=== PATIENT | female | born 1930 | race Caucasian/White ===

== ENCOUNTER 2017-11-24 13:20 | Day surgery (SDC) | payer OTHER ==
--- NOTE | 2017-11-20 09:33 | EKG ---
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
[2017-11-24 13:45] VITALS: O2SAT 99
[2017-11-24] MEDS ORDERED: NS 0.9% VIAL 10 ML ONE (13:48)
[2017-11-24] MEDS ORDERED: LIDOCAINE 2% INJ, MPF 2 ML 0 ML ONE (13:54)
[2017-11-24] MEDS ORDERED: NA CHLORIDE 0.9% 500 ML ONE (13:54)
[2017-11-24] MEDS ORDERED: PHENYLEPHRINE 10% OPTH 5ML ONE (13:54)
[2017-11-24] MEDS ORDERED: TETRACAINE HCL 0.5% 2ML OPTH ONE (13:55)
[2017-11-24] MEDS ORDERED: BUPIVACAINE 0.25% PF 10 ML VIAL ONE (13:55)
[2017-11-24] MEDS ORDERED: CYCLOPENTOLATE 1% OPTH 2 ML ONE (13:55)
[2017-11-24] MEDS ORDERED: PHENYLEPHRINE 10% OPTH 5ML OPTH ONE ×2 (14:23→14:28)
[2017-11-24] MEDS ORDERED: CYCLOPENTOLATE 1% OPTH 2 ML OPTH ONE ×2 (14:23→14:28)
[2017-11-24] MEDS: EPINEPHRINE/PF 1 MG/ML AMP ONE ×2 (14:58→15:25)
[2017-11-24] MEDS: BALANCED SALT IRRIG PLAIN 500 ML BTL IRR ONE ×2 (14:58→15:25)
[2017-11-24] MEDS: MOXIFLOXACIN HCL 10 DROPS/ML **OR USE OPTH ONE ×2 (14:59→15:25)
[2017-11-24] MEDS: DUOVISC 1 KIT OPTH ONE ×2 (14:59→15:25)
[2017-11-24] MEDS ORDERED: FENTANYL CITR 100 MCG/2 ML ONE (15:05)
[2017-11-24] MEDS ORDERED: PROPOFOL 200 MG/20 ML VIAL IV ONE (15:05)
[2017-11-24] MEDS ORDERED: LIDOCAINE 1% MPF 5 ML VIAL ONE (15:06)
[2017-11-24] MEDS ORDERED: BSS OPTHALMIC SOL 15 ML BOT OPTH ONE (15:22)
[2017-11-24] MEDS ORDERED: ONDANSETRON HCL 40 MG/20 ML VIAL ONE (15:44)
[2017-11-24] MEDS ORDERED: EPHEDRINE SULF 50 MG/10 ML SYR ONE (15:44)
--- NOTE | 2017-11-24 16:15 | P.BOP ---
Preoperative diagnosis: Nuclear sclerotic cataract and regular astigmatism OS Postoperative diagnosis: Same Primary procedure: Phacoemulsification with IOL OS Estimated blood loss: None Anesthesia: General Complications: None Implants: [id number] +25.0 @ 167 Transferred to: Other (Day surgery) Condition: Good
[2017-11-24 17:04] VITALS: BP 158/51; TEMP 96.8
--- NOTE | 2017-11-25 03:21 | OP ---
Date of Procedure: 11/24/2017 Surgeon: Adwoa Clark MD Anesthesiologist: Víctor Marie CRNA and Josias Garcia M.D. Preoperative Diagnoses: Nuclear sclerotic cataract, left eye; and regular astigmatism, left eye. Operation Performed: Phacoemulsification with Toric intraocular lens implant, left eye. Anesthesia: General anesthesia. Complications: None. Description Of Procedure: In the operating room the patient was prepped and draped in the usual ster ile fashion for ophthalmic surgery. A lid speculum was placed in the left eye. Two paracentesis sit es were made superiorly and inferiorly in the limbal cornea. Viscoat was placed in the anterior mily hanh and a crescent blade was used to make a corneal groove and tunnel, and a keratome was used to ent er the anterior chamber. Provisc was placed in the anterior chamber and a 360 degree capsulotomy was performed with a cystitome. The lens was hydrodissected with BSS and rotated freely. The lens was removed with a stop and chop technique. A 25.96 phaco CDE was used to remove the lens. Residual cor jimbo was removed with the irrigation and aspiration. Provisc was placed in the capsular bag. A [id number] 5 +25.0 at 167 lens was placed in the capsular bag without complications. Irrigation and aspiration was used to remove residual viscoelastic. The paracentesis sites were hydrated with BSS. The wound and paracentesis sites were inspected and found to be watertight. Vigamox 0.07 cc was placed intraca merally at the end of the procedure. The eye was irrigated with balanced salt solution. The eye was patched with a soft cotton patch and Brody metal shield. The patient was returned to day surgery in good condition. Comments: The patient was performed under general anesthesia because of a tremor. Discharge Instructions: Ms. Espinosa is discharged to home in good condition and is to follow up byron Clark in the morning. ARTUR/CORTES Voice ID: [id number] Report ID: [id number]
== END 2017-11-24 17:30 | disposition home or self-care (01) ==
LOC: OR 13:20
PROVIDERS: ATTEND Ophthalmology Retina Specialist
PROC: 08RK3JZ Replacement of Left Lens with Synthetic Substitute, Percutaneous Approach (ICD-10-PCS; principal; 2017-11-24 13:00)
DX: H25.12 Age-related nuclear cataract, left eye (principal); H52.222 Regular astigmatism, left eye; I10 Essential (primary) hypertension; Z88.0 Allergy status to penicillin; Z83.511 Family history of glaucoma; Z82.49 Family history of ischemic heart disease and other diseases of the circulatory system; Z80.9 Family history of malignant neoplasm, unspecified
CPT/HCPCS: 66984; 93005; J0171; J2405; J3010; J3490; V2787

== ENCOUNTER 2018-01-05 06:51 | Day surgery (SDC) | payer OTHER ==
[2018-01-05] MEDS ORDERED: PHENYLEPHRINE 10% OPTH 5ML ONE (07:17)
[2018-01-05] MEDS ORDERED: NA CHLORIDE 0.9% 500 ML ONE (07:17)
[2018-01-05] MEDS ORDERED: CYCLOPENTOLATE 1% OPTH 2 ML ONE (07:17)
[2018-01-05] MEDS ORDERED: PHENYLEPHRINE 10% OPTH 5ML OPTH ONE ×2 (07:30→07:35)
[2018-01-05] MEDS ORDERED: CYCLOPENTOLATE 1% OPTH 2 ML OPTH ONE ×2 (07:30→07:35)
[2018-01-05] MEDS ORDERED: NS 0.9% VIAL 10 ML ONE (08:11)
[2018-01-05] MEDS ORDERED: DUOVISC 1 KIT OPTH ONE (08:12)
[2018-01-05] MEDS ORDERED: BALANCED SALT IRRIG PLAIN 500 ML BTL IRR ONE (08:12)
[2018-01-05] MEDS ORDERED: EPINEPHRINE/PF 1 MG/ML AMP ONE (08:12)
[2018-01-05] MEDS ORDERED: MOXIFLOXACIN HCL 10 DROPS/ML **OR USE OPTH ONE (08:12)
[2018-01-05] MEDS ORDERED: FENTANYL CITR 100 MCG/2 ML ONE (08:35)
[2018-01-05] MEDS ORDERED: PROPOFOL 200 MG/20 ML VIAL IV ONE (08:35)
[2018-01-05] MEDS ORDERED: LIDOCAINE 2% MPF 5 ML VIAL ONE (08:35)
[2018-01-05] MEDS ORDERED: EPHEDRINE SULF 50 MG/10 ML SYR ONE (08:36)
[2018-01-05] MEDS ORDERED: GLYCOPYRROLATE 0.2 MG/ML SYR ONE (08:36)
[2018-01-05] MEDS ORDERED: TETRACAINE HCL 0.5% 2ML OPTH ONE (09:05)
--- NOTE | 2018-01-05 09:56 | P.BOP ---
Preoperative diagnosis: Nuclear sclerotic cataract and regular astigmatism OD Postoperative diagnosis: Same Primary procedure: Phacoemulsification with Toric IOL OD Estimated blood loss: None Anesthesia: General Complications: None Implants: [id number] +24.5 @ 170 Transferred to: Recovery Room Condition: Good
[2018-01-05 10:49] VITALS: BP 164/62; TEMP 97.8; O2SAT 95
--- NOTE | 2018-01-05 21:17 | OP ---
Date of Procedure: 01/05/2018 Surgeon: Adwoa Clark MD Anesthesiologist: 1. Linda Ocasio CRNA. 2. Francis Escobar M.D. Preoperative Diagnosis: Nuclear sclerotic cataract, right eye. Operation Performed: Phacoemulsification with intraocular lens implant, right eye. Anesthesia: General. Complications: None. Description Of Procedure: In the operating room, the patient was prepped and draped in the usual julio c rile fashion for ophthalmic surgery. A lid speculum was placed in the right eye. Paracentesis sites were made superiorly and inferiorly in the limbal cornea. Viscoat was placed in the anterior chambe r and a crescent blade was used to make a corneal groove and tunnel, and a keratome was used to enter the anterior chamber. Provisc was placed in the anterior chamber and a 360 degree capsulotomy was p erformed with a cystitome. The lens was hydrodissected with BSS and rotated freely. The lens was re moved with a stop and chop technique. 19.07 phaco CDE was used to remove the lens. Residual cortex was removed with the irrigation and aspiration. Provisc was placed in the capsular bag. A [id number] + 24.5 at 170 degrees lens was placed in the capsular bag without complications. Irrigation and aspira tion were used to remove residual viscoelastic. The paracentesis sites were hydrated with BSS. The wound and paracentesis sites were inspected and found to be watertight. Vigamox 0.07 cc was placed i ntracamerally at the end of the procedure. The eye was irrigated with balanced salt solution. The e ye was patched with a soft cotton patch and Brody metal shield. The patient was returned to day surgery in good condition. Comments: Extra Viscoat was used. Discharge Instructions: Ms. Espinosa is discharged to home in good condition and is to follow up byron Clark in the morning. ARTUR/CORTES Voice ID: [id number] Report ID: [id number]
== END 2018-01-05 11:07 | disposition home or self-care (01) ==
LOC: OR 06:51
PROVIDERS: ATTEND Ophthalmology Retina Specialist
PROC: 08RJ3JZ Replacement of Right Lens with Synthetic Substitute, Percutaneous Approach (ICD-10-PCS; principal; 2018-01-05 09:10)
DX: H25.11 Age-related nuclear cataract, right eye (principal); H52.221 Regular astigmatism, right eye; E11.9 Type 2 diabetes mellitus without complications; I10 Essential (primary) hypertension; Z88.0 Allergy status to penicillin; Z88.8 Allergy status to other drugs, medicaments and biological substances; Z79.82 Long term (current) use of aspirin; Z83.511 Family history of glaucoma; Z80.9 Family history of malignant neoplasm, unspecified; Z82.49 Family history of ischemic heart disease and other diseases of the circulatory system
CPT/HCPCS: 36415; 66984; 82962; 84132; J0171; J3010; V2787

== ENCOUNTER 2018-02-20 18:08 | Observation (INO) | payer OTHER ==
--- NOTE | 2018-02-20 18:29 | EDPHYS ---
Physician Documentation [facility] Unit Name: Adwoa Espinosa Age: 87 yrs Sex: Female : 1930 Arrival Date: 02/20/2018 Time: 18:09 Bed 7 Private MD: Leslie Noonan C ED Physician Victoriano Flores HPI: 02/20 18:19 This 87 yrs old Female presents to ER via EMS with complaints of Weakness. bernabe 18:19 The patient presents to the emergency department with weakness of the a speech or bernabe higher order brain function problem, difficulty standing, difficult walking. Onset: The symptoms/episode began/occurred today. Context: occurred at home. Associated signs and symptoms: Pertinent positives: altered mental status, weakness. Severity of symptoms: At their worst the symptoms were mild in the emergency department the symptoms are unchanged. Patient's baseline: Neuro: alert and fully oriented, Motor: no deficits, Ambulation: walks with assist only, Speech: normal. The patient has experienced similar episodes in the past, a few times. Historical: - Allergies: 18:13 ACETAMINOPHEN; bp 18:13 Codeine; bp 18:13 Opioids-Meperidine Related; bp 18:13 PENICILLINS; bp - Home Meds: 18:23 spironolactone 25 mg Oral tab 1 tab once daily [Active]; furosemide 40 mg Oral tab 1 bp tab 2 times per day [Active]; hydralazine 10 mg Oral tab 1 tab 2 times per day [Active]; propranolol 20 mg Oral tab 2 times per day [Active]; ursodiol 500 mg Oral tab daily [Active]; omeprazole 40 mg Oral cpDR 1 cap once daily [Active]; - PMHx: 18:13 Arthritis; Atrial Fib; Cirrhosis; Hypertension; bp - Immunization history:: Adult Immunizations up to date. - Social history:: Smoking status: Patient/guardian denies using tobacco. - Ebola Screening: : Patient negative for fever greater than or equal to 101.5 degrees Fahrenheit, and additional compatible Ebola Virus Disease symptoms Patient denies exposure to infectious person Patient denies travel to an Ebola-affected area in the 21 days before illness onset No symptoms or risks identified at this time. - Family history:: not pertinent. ROS: 18:19 Constitutional: Negative for fever, chills, and weight loss, Eyes: Negative for injury, bernabe pain, redness, and discharge, ENT: Negative for injury, pain, and discharge, Neck: Negative for injury, pain, and swelling, Cardiovascular: Negative for chest pain, palpitations, and edema, Respiratory: Negative for shortness of breath, cough, wheezing, and pleuritic chest pain, Abdomen/GI: Negative for abdominal pain, nausea, vomiting, diarrhea, and constipation, Back: Negative for injury and pain, : Negative for injury, bleeding, discharge, and swelling, MS/Extremity: Negative for injury and deformity, Skin: Negative for injury, rash, and discoloration, Psych: Negative for depression, anxiety, suicide ideation, homicidal ideation, and hallucinations, Allergy/Immunology: Negative for hives, rash, and allergies, Endocrine: Negative for neck swelling, polydipsia, polyuria, polyphagia, and marked weight changes, Hematologic/Lymphatic: Negative for swollen nodes, abnormal bleeding, and unusual bruising. 18:19 Neuro: Positive for altered mental status, weakness. Exam: 18:19 Constitutional: This is a well developed, well nourished patient who is awake, alert, bernabe and in no acute distress. Head/Face: Normocephalic, atraumatic. Eyes: Pupils equal round and reactive to light, extra-ocular motions intact. Lids and lashes normal. Conjunctiva and sclera are non-icteric and not injected. Cornea within normal limits. Periorbital areas with no swelling, redness, or edema. ENT: Nares patent. No nasal discharge, no septal abnormalities noted. Tympanic membranes are normal and external auditory canals are clear. Oropharynx with no redness, swelling, or masses, exudates, or evidence of obstruction, uvula midline. Mucous membranes moist. Neck: Trachea midline, no thyromegaly or masses palpated, and no cervical lymphadenopathy. Supple, full range of motion without nuchal rigidity, or vertebral point tenderness. No Meningismus. Chest/axilla: Normal chest wall appearance and motion. Nontender with no deformity. No lesions are appreciated. Cardiovascular: Regular rate and rhythm with a normal S1 and S2. No gallops, murmurs, or rubs. Normal PMI, no JVD. No pulse deficits. Respiratory: Lungs have equal breath sounds bilaterally, clear to auscultation and percussion. No rales, rhonchi or wheezes noted. No increased work of breathing, no retractions or nasal flaring. Abdomen/GI: Soft, non-tender, with normal bowel sounds. No distension or tympany. No guarding or rebound. No evidence of tenderness throughout. Back: No spinal tenderness. No costovertebral tenderness. Full range of motion. Skin: Warm, dry with normal turgor. Normal color with no rashes, no lesions, and no evidence of cellulitis. MS/ Extremity: Pulses equal, no cyanosis. Neurovascular intact. Full, normal range of motion. Neuro: Awake and alert, GCS 15, oriented to person, place, time, and situation. Cranial nerves II-XII grossly intact. Motor strength 5/5 in all extremities. Sensory grossly intact. Cerebellar exam normal. Normal gait. Psych: Awake, alert, with orientation to person, place and time. Behavior, mood, and affect are within normal limits. 18:19 Neuro: Orientation: is normal, appropriate for stated age, no acute changes, Mentation: appropriate for stated age, no acute changes, Cerebellar function: unable to test, Motor: moves all fours, Gait: not tested. seizure activity, is not displayed by the patient. Vital Signs: 18:13 BP 156 / 72; Pulse 68; Resp 19; Temp 96.9; Pulse Ox 97% ; Weight 58.97 kg; bp 19:15 BP 148 / 55; Pulse 98; Resp 18; Temp 98(O); Pulse Ox 96% on 2 lpm NC; rr5 20:30 BP 134 / 53; Pulse 68; Resp 18; Temp 98.1; Pulse Ox 96% on 2 lpm NC; rr5 20:50 BP 141 / 70; Pulse 65; Resp 18; Pulse Ox 97% on 2 lpm NC; rr5 Vlad Coma Score: 19:15 Eye Response: spontaneous(4). Verbal Response: oriented(5). Motor Response: obeys rr5 commands(6). Total: 15. MDM: 18:12 Patient medically screened. [facility] 18:23 Data reviewed: vital signs, nurses notes, lab test result(s), EKG, radiologic studies, [facility] CT scan, plain films. 02/20 18:19 Order name: Basic Metabolic Panel; Complete Time: 19:49 [facility] 02/20 19:49 Interpretation: Normal except: GLUC 148; BUN 21; GFR 39. cp 02/20 18:19 Order name: CBC with Diff; Complete Time: 19:07 [facility] 02/20 18:19 Order name: LFT's; Complete Time: 19:49 [facility] 02/20 19:50 Interpretation: Normal except: BILIT 2.1; BILID 0.8; GLOB 3.6; A/G 0.9. 02/20 18:19 Order name: Magnesium; Complete Time: 19:49 [facility] 02/20 18:19 Order name: NT PRO-BNP; Complete Time: 19:49 [facility] 02/20 19:54 Interpretation: Abnormal: NT PRO-BNP 856. 02/20 18:19 Order name: PT-INR; Complete Time: 19:16 [facility] 02/20 18:19 Order name: Troponin (emerg Dept Use Only); Complete Time: 19:49 [facility] 02/20 19:49 Interpretation: Abnormal: TROPED 0.13. 02/20 18:19 Order name: Urine Culture [facility] 02/20 18:19 Order name: Lipase; Complete Time: 19:49 [facility] 02/20 18:19 Order name: Blood Culture Adult (2) [facility] 02/20 18:23 Order name: AMMONIA; Complete Time: 19:16 [facility] 02/20 19:55 Interpretation: Abnormal: YUNIER 94. cp 02/20 18:29 Order name: Lactate; Complete Time: 19:20 bp 02/20 19:50 Interpretation: Abnormal: LAC 2.3. 02/20 18:41 Order name: Basic Metabolic Panel EDMS 02/20 18:41 Order name: Basic Metabolic Panel EDMS 02/20 18:19 Order name: XRAY Chest (1 view) [facility] 02/20 18:19 Order name: CT Head Brain wo Cont [facility] 02/20 18:41 Order name: CBC with Automated Diff EDMS 02/20 18:41 Order name: CBC with Automated Diff EDMS 02/20 18:41 Order name: Troponin I EDMS 02/20 18:41 Order name: Troponin I EDMS 02/20 18:41 Order name: Troponin I EDMS 02/20 19:25 Order name: CT; Complete Time: 19:49 EDMS 02/20 19:27 Order name: RAD; Complete Time: 19:49 EDMS 02/20 20:37 Order name: Urine Dipstick--Ancillary (enter results) ms 02/20 20:42 Order name: Urine Dipstick-Ancillary EDMS 02/20 18:19 Order name: EKG; Complete Time: 18:20 [facility] 02/20 18:19 Order name: Cardiac monitoring; Complete Time: 18:24 [facility] 02/20 18:19 Order name: EKG - Nurse/Tech; Complete Time: 18:24 [facility] 02/20 18:19 Order name: IV Saline Lock; Complete Time: 18:24 [facility] 02/20 18:19 Order name: Labs collected and sent; Complete Time: 19:04 [facility] 02/20 18:19 Order name: O2 Per Protocol; Complete Time: 18:24 [facility] 02/20 18:19 Order name: O2 Sat Monitoring; Complete Time: 18:24 [facility] 02/20 18:19 Order name: Urine Dipstick-Ancillary (obtain specimen); Complete Time: 20:42 [facility] 02/20 18:40 Order name: Consistent Carb (ADA) [address] EDMS 02/20 18:40 Order name: EKG Electrocardiogram EDMS 02/20 18:40 Order name: EKG Electrocardiogram EDMS 02/20 18:40 Order name: EKG Electrocardiogram EDMS 02/20 18:40 Order name: EKG Electrocardiogram EDMS Administered Medications: 19:40 Drug: Rocephin - (cefTRIAXone) 1 grams Route: IVPB; Infused Over: 30 mins; Site: left lp1 antecubital; 20:55 Follow up: Response: No adverse reaction; IV Status: Completed infusion rr5 19:50 Drug: Lactulose 30 grams Volume: 45 ml; Route: PO; lp1 20:55 Follow up: Response: No adverse reaction rr5 19:55 Drug: foLIC Acid 1 mg Route: IVPB; Site: left antecubital; lp1 21:13 Follow up: Response: No adverse reaction; IV Status: Infusion continued upon admission rr5 19:55 Drug: NS 0.9% 500 ml Route: IV; Rate: bolus; Site: left antecubital; lp1 20:55 Follow up: Response: No adverse reaction; IV Status: Infusion continued upon admission; rr5 IV Intake: 450ml 20:55 Drug: Aspirin Chewable Tablet 324 mg Route: PO; rr5 20:55 Follow up: Response: Other; upon transfer medicatio given rr5 Disposition: 02/20/18 18:26 Hospitalization ordered by Leslie Noonan for Observation. Preliminary diagnosis are Weakness, Altered mental status, unspecified, Encephalopathy, unspecified - hepatic. - Bed requested for Telemetry/MedSurg (observation). - Status is Observation. rr5 - Condition is Fair. - Problem is new. - Symptoms have improved. UTI on Admission? No Signatures: Dispatcher [employer] EDMS Ruth Anglin RN RN Victoriano Sanchez MD MD cha Pena, Laura, RN RN lp1 Victoriano Mondragon PA PA cp Peltier, Brian, RN RN bp Erick Monsivais, RN RN rr5 Corrections: (The following items were deleted from the chart) 19:17 18:26 Hospitalization Ordered by A Saran CORONADO for Observation. Preliminary diagnosis is bernabe Weakness; Altered mental status, unspecified. Bed requested for Telemetry/MedSurg (observation). Status is Observation. Condition is Fair. Problem is new. Symptoms have improved. UTI on Admission? No. bernabe 19:39 19:17 02/20/2018 18:26 Hospitalization Ordered by A Saran CORONADO for Observation. dw Preliminary diagnosis is Weakness; Altered mental status, unspecified; Encephalopathy, unspecified - hepatic. Bed requested for Telemetry/MedSurg (observation). Status is Observation. Condition is Fair. Problem is new. Symptoms have improved. UTI on Admission? No. bernabe 21:15 19:39 02/20/2018 18:26 Hospitalization Ordered by A Saran CORONADO for Observation. rr5 Preliminary diagnosis is Weakness; Altered mental status, unspecified; Encephalopathy, unspecified - hepatic. Bed requested for Telemetry/MedSurg (observation). Status is Observation. Condition is Fair. Problem is new. Symptoms have improved. UTI on Admission? No. dw
--- NOTE | 2018-02-20 18:29 | ER ---
Nurse's Notes [facility] Name: Adwoa Espinosa Age: 87 yrs Sex: Female : 1930 Arrival Date: 02/20/2018 Time: 18:09 Bed 7 Private MD: Leslie Noonan C Diagnosis: Weakness;Altered mental status, unspecified;Encephalopathy, unspecified-hepatic Presentation: 02/20 18:10 Presenting complaint: EMS states: GENERALIZED WEAKNESS SINCE THIS MORNING. Transition bp of care: patient was not received from another setting of care. Onset of symptoms is unknown. Risk Assessment: Do you want to hurt yourself or someone else? Patient reports no desire to harm self or others. Initial Sepsis Screen: Does the patient meet any 2 criteria? No. Patient's initial sepsis screen is negative. Does the patient have a suspected source of infection? No. Patient's initial sepsis screen is negative. Care prior to arrival: IV initiated. 20 GA, in the left antecubital area, Glucose check: 156. 18:10 Method Of Arrival: EMS: [facility] bp 18:10 Acuity: XAVIER 2 bp Triage Assessment: 18:13 General: Appears in no apparent distress. comfortable, Behavior is calm, cooperative, bp appropriate for age. Pain: Denies pain. EENT: No deficits noted. Neuro: Level of Consciousness is awake, alert, obeys commands, Oriented to person, place, time, situation, Appropriate for age Gait is unsteady. Cardiovascular: Rhythm is sinus rhythm. Respiratory: Airway is patent Respiratory effort is even, unlabored, Respiratory pattern is regular, symmetrical. GI: No signs and/or symptoms were reported involving the gastrointestinal system. : No signs and/or symptoms were reported regarding the genitourinary system. Derm: No deficits noted. Musculoskeletal: Circulation, motion, and sensation intact. Range of motion: intact in all extremities. Historical: - Allergies: 18:13 ACETAMINOPHEN; bp 18:13 Codeine; bp 18:13 Opioids-Meperidine Related; bp 18:13 PENICILLINS; bp - Home Meds: 18:23 spironolactone 25 mg Oral tab 1 tab once daily [Active]; furosemide 40 mg Oral tab 1 bp tab 2 times per day [Active]; hydralazine 10 mg Oral tab 1 tab 2 times per day [Active]; propranolol 20 mg Oral tab 2 times per day [Active]; ursodiol 500 mg Oral tab daily [Active]; omeprazole 40 mg Oral cpDR 1 cap once daily [Active]; - PMHx: 18:13 Arthritis; Atrial Fib; Cirrhosis; Hypertension; bp - Immunization history:: Adult Immunizations up to date. - Social history:: Smoking status: Patient/guardian denies using tobacco. - Ebola Screening: : Patient negative for fever greater than or equal to 101.5 degrees Fahrenheit, and additional compatible Ebola Virus Disease symptoms Patient denies exposure to infectious person Patient denies travel to an Ebola-affected area in the 21 days before illness onset No symptoms or risks identified at this time. - Family history:: not pertinent. Screenin:17 Abuse screen: Denies threats or abuse. Denies injuries from another. Nutritional bp screening: No deficits noted. Tuberculosis screening: No symptoms or risk factors identified. Fall Risk No fall in past 12 months (0 pts). Secondary diagnosis (15 points) impaired mobility, IV access (20 points). Ambulatory Aid- Crutches/Cane/Walker (15 pts). Gait- Weak (10 pts.). Mental Status- Oriented to own ability (0 pts). Total Friedman Fall Scale indicates High Risk Score (45 or more points). Fall prevention measures have been instituted. Side Rails Up X 2 Placed Close to Nursing Station Frequent Obs/Assessments Occuring Family Present and informed to notify staff if the need to leave the bedside As available patient and family educated on Fall Prevention Program and Strategies. 19:50 The patient is alert, able to follow commands. slow to speak The patient is not rr5 exhibiting difficulty speaking. slow to speak The patient does not exhibit difficulty understanding words. The patient is able to swallow own secretions with no drooling or need for suction. Patient tolerated one teaspoon of water. No drooling, immediate coughing, gurgling, or clearing of the throat was noted. The patient tolerated 90mL of water. No drooling, immediate coughing, gurgling, or clearing of the throat was noted. The patient passed the bedside swallow screening. Oral medications may be given as ordered. Contact Physician for further diet orders. Assessment: 18:18 General: SEE TRIAGE NOTE. bp 19:15 General: Appears in no apparent distress. comfortable, Behavior is calm, cooperative, lp1 appropriate for age, slow to speak. 19:15 Pain: Denies pain. Neuro: Level of Consciousness is awake, alert, obeys commands, lp1 Oriented to person, place, time, Social Human Services Assistants are weak bilaterally Weakness Speech slow to speak. Reports weakness. Cardiovascular: Capillary refill < 3 seconds Patient's skin is warm and dry. Respiratory: Airway is patent Respiratory effort is even, unlabored, Respiratory pattern is regular, symmetrical. GI: No signs and/or symptoms were reported involving the gastrointestinal system. : EENT: No signs and/or symptoms were reported regarding the EENT system. Derm: edema at left lower leg. Musculoskeletal: No signs and/or symptoms reported regarding the musculoskeletal system. 19:15 Reassessment: 191 General assessment done by erick DEAN. rr5 19:40 Reassessment: medication given on upright position, tolerated. swallow test done. lp1 20:55 Reassessment: Patient appears in no apparent distress at this time. no complaints made. rr5 vitally stable transferred to telemetry Patient states feeling better. Vital Signs: 18:13 BP 156 / 72; Pulse 68; Resp 19; Temp 96.9; Pulse Ox 97% ; Weight 58.97 kg; bp 19:15 BP 148 / 55; Pulse 98; Resp 18; Temp 98(O); Pulse Ox 96% on 2 lpm NC; rr5 20:30 BP 134 / 53; Pulse 68; Resp 18; Temp 98.1; Pulse Ox 96% on 2 lpm NC; rr5 20:50 BP 141 / 70; Pulse 65; Resp 18; Pulse Ox 97% on 2 lpm NC; rr5 Snowflake Coma Score: 19:15 Eye Response: spontaneous(4). Verbal Response: oriented(5). Motor Response: obeys rr5 commands(6). Total: 15. ED Course: 18:09 Patient arrived in ED. rg4 18:09 Leslie Noonan MD is Private Physician. rg4 18:10 Reese Tejeda, JERMAINE is Primary Nurse. bp 18:12 Victoriano Flores MD is Attending Physician. bernabe 18:12 Triage completed. bp 18:13 Arm band placed on right wrist. bp 18:17 Patient has correct armband on for positive identification. Bed in low position. Call bp light in reach. Side rails up X2. Adult w/ patient. 18:24 Maintain EMS IV. Dressing intact. Good blood return noted. Site clean \T\ dry. Gauge \T\ bp site: 20 GAUGE LEFT AC. 18:25 Patient moved to [place] 18:26 Leslie Noonan MD is Hospitalizing Provider. [facility] 18:35 Radiology exam delayed due to IV insertion attempt and/or patient not having ls3 appropriate IV at this time. 19:15 youth nutritional monitor on. Pulse ox on. NIBP on. rr5 20:30 Straight cath inserted, using sterile technique, 16 Fr. Specimen obtained. Returned rr5 bo urine. Patient tolerated well. 20:33 No provider procedures requiring assistance completed. Patient admitted, IV remains in lp1 place. Administered Medications: 19:40 Drug: Rocephin - (cefTRIAXone) 1 grams Route: IVPB; Infused Over: 30 mins; Site: left lp1 antecubital; 20:55 Follow up: Response: No adverse reaction; IV Status: Completed infusion rr5 19:50 Drug: Lactulose 30 grams Volume: 45 ml; Route: PO; lp1 20:55 Follow up: Response: No adverse reaction rr5 19:55 Drug: foLIC Acid 1 mg Route: IVPB; Site: left antecubital; lp1 21:13 Follow up: Response: No adverse reaction; IV Status: Infusion continued upon admission rr5 19:55 Drug: NS 0.9% 500 ml Route: IV; Rate: bolus; Site: left antecubital; lp1 20:55 Follow up: Response: No adverse reaction; IV Status: Infusion continued upon admission; rr5 IV Intake: 450ml 20:55 Drug: Aspirin Chewable Tablet 324 mg Route: PO; rr5 20:55 Follow up: Response: Other; upon transfer medicatio given rr5 Intake: 20:55 IV: 450ml; Total: 450ml. rr5 20:30 yellowish rr5 Output: 20:30 Urine: 250ml (Straight Cath); Total: 250ml. rr5 20:30 yellowish rr5 Outcome: 18:26 Decision to Hospitalize by Provider. bernabe 20:32 Admitted to Tele room 407, with chart, Report called to JERMAINE Sharpe lp1 20:32 Condition: stable 20:32 Instructed on the need for admit. 21:15 Patient left the ED. rr5 Signatures: Victoriano Flores MD MD cha Pena, Laura, RN RN lp1 Natalia Jolly rg4 Kellen Valdivia 2 Reese Tejeda RN RN bp Ana Singh ls3 Erick Monsivais RN RN rr5 Corrections: (The following items were deleted from the chart) 20:13 19:15 GI: No signs and/or symptoms were reported involving the gastrointestinal system. rr5 lp1 20:33 20:32 Admitted to Tele with chart, Report called to JERMAINE Sharpe lp1 lp1
[2018-02-20] MEDS ORDERED: ACETAMINOPHEN 500 MG TAB PO PRN (18:34)
[2018-02-20] MEDS ORDERED: ONDANSETRON 4 MG/2 ML VIAL IV PRN (18:34)
[2018-02-20 19:03] LABS: Absolute Lymphocytes (CBC) 1.5 K/uL (0.7-4.9); Absolute Monocytes 0.8 K/uL (0.1-1.3); Absolute Neutrophil 4.9 K/uL (1.8-8.0); Basophils % 0.4 % (0-1.3); Eosinophils % 3.1 % (0-4.4); Hematocrit 41.5 % (36.0-45.0); MCH 32.6 pg (27.0-35.0); MCV 93.3 fL (80-100); Monocytes % 10.2 % (3.3-12.3); RBC Red Blood Cell Count 4.45 M/uL (3.86-4.86)
[2018-02-20 19:06] LABS: Protime INR 1.35
[2018-02-20 19:22] LABS: Albumin 3.4 g/dL (3.4-5.0); Bilirubin Direct 0.8 mg/dL (0-0.2); Bilirubin Total 2.1 mg/dL (0.2-1.0); Magnesium 2.3 mg/dL (1.8-2.4); Troponin (Emerg Dept Use Only) 0.13 ng/mL (0.0-0.045)
--- NOTE | 2018-02-20 19:24 | RAD REPORT ---
EXAM DESCRIPTION: CT - Head Brain Wo Cont - 02/20/2018 7:04 pm CLINICAL HISTORY: Transient alteration of awareness COMPARISON: None. TECHNIQUE: Axial 5 mm thick images of the head were obtained without IV contrast. All CT scans are performed using dose optimization technique as appropriate and may include automated exposure control or mA/KV adjustment according to patient size. FINDINGS: No intracranial hemorrhage, mass, edema or shift of mid-line structures. No acute infarcti on changes seen. Moderate severity atrophy and chronic ischemic changes are present. Ventricles are i n proportion to volume loss. Arterial and physiologic calcifications are present. Ventricles are norm al. Mastoid air cells are clear. Chronic sphenoid sinusitis is present. No acute bony findings. IMPRESSION: Moderate atrophy and chronic ischemic change with no acute intracranial finding. Chronic sphenoid sinusitis.
--- NOTE | 2018-02-20 19:26 | RAD REPORT ---
EXAM DESCRIPTION: RAD - Chest Single View - 02/20/2018 7:00 pm CLINICAL HISTORY: Weakness, shortness of breath COMPARISON: July 2015 TECHNIQUE: AP portable chest image was obtained 1843 hours . FINDINGS: Chronic interstitial lung disease is evident. Interstitial pattern is similar to compariso n. Heart and vasculature are normal. No measurable pleural effusion and no pneumothorax. No acute bon y abnormality seen. No acute aortic findings suspected. IMPRESSION: Chronic interstitial lung disease similar to comparison. No acute finding identifiable.
[2018-02-20] MEDS ORDERED: NA CHLORIDE 0.9% 500 ML ONE (19:42)
[2018-02-20] MEDS ORDERED: CEFTRIAXONE/SWI 1gm 1 GM/10 ML SYR ONE (19:43)
[2018-02-20] MEDS ORDERED: FOLIC ACID 5 MG/ML VIAL ONE (19:43)
[2018-02-20] MEDS ORDERED: LACTULOSE 20 GM/30 ML UCUP ONE (19:44)
[2018-02-20] MEDS ORDERED: NA CHLORIDE 0.9% 0 ML ONE (19:44)
[2018-02-20 20:42] LABS: Urine Blood TRACE (NEG); Urine Glucose NEGATIVE (NEG); Urine Protein NEGATIVE (NEG)
[2018-02-20] MEDS ORDERED: ASPIRIN 81 MG CHEWABLE TABLET ONE (20:53)
[2018-02-20] MEDS: LACTULOSE 20 GM/30 ML UCUP PO SCH (21:00)
[2018-02-20] MEDS: FAMOTIDINE 20 MG/2 ML VIAL IV SCH (22:00)
[2018-02-20 22:05] VITALS: BMI 23.1
[2018-02-21 03:13] LABS: Absolute Lymphocytes (CBC) 1.8 K/uL (0.7-4.9); Absolute Monocytes 0.9 K/uL (0.1-1.3); Absolute Neutrophil 4.5 K/uL (1.8-8.0); Basophils % 0.3 % (0-1.3); Eosinophils % 2.5 % (0-4.4); Hematocrit 39.4 % (36.0-45.0); Lymphocytes % 23.8 % (15.3-44.8); MCH 32.1 pg (27.0-35.0); MCV 93.9 fL (80-100); MPV 9.1 fL (7.6-11.3); Monocytes % 12.4 % (3.3-12.3); RBC Red Blood Cell Count 4.19 M/uL (3.86-4.86)
--- NOTE | 2018-02-21 06:59 | EKG ---
Test Date: 2018-02-20 Test Time: 18:38:43 Information Security Director: YANNICK MEASUREMENT RESULTS: Intervals: Rate: 69 MS: 146 QRSD: 132 QT: 478 QTc: 512 [place]: P: 70 MS: 146 QRS: 11 T: 143 INTERPRETIVE STATEMENTS: Normal sinus rhythm Left bundle branch block Abnormal ECG Compared to ECG 02/20/2018 18:37:37 No significant changes Electronically Signed On 02-21-18 06:59:00 DOVETAIL MACHINE OPERATOR by Everett Riojas
--- NOTE | 2018-02-21 06:59 | EKG ---
Test Date: 2018-02-20 Test Time: 18:37:37 Gang Leader: YANNICK MEASUREMENT RESULTS: Intervals: Rate: 67 OR: 152 QRSD: 132 QT: 468 QTc: 494 [place]: P: 53 OR: 152 QRS: 12 T: 133 INTERPRETIVE STATEMENTS: Normal sinus rhythm Left bundle branch block Abnormal ECG Compared to ECG 11/19/2017 12:03:00 No significant changes Electronically Signed On 02-21-18 06:59:04 BASKET HAND BRAIDER by Everett Riojas
[2018-02-21] MEDS: ASPIRIN EC 81 MG TAB PO SCH (08:09)
[2018-02-21] MEDS: LACTULOSE 20 GM/30 ML UCUP PO SCH ×3 (08:09→23:38)
[2018-02-21] MEDS: FAMOTIDINE 20 MG/2 ML VIAL IV SCH ×2 (08:10→21:20)
[2018-02-21] MEDS ORDERED: CHLORPHENIRAMINE MALEATE 4 MG PO PRN (13:58)
--- NOTE | 2018-02-21 15:58 | HP ---
Date of Admission: 02/21/2018 Chief Complaint: Weakness and confusion. History Of Present Illness: An 87-year-old very pleasant female patient with biliary cirrhosis, who lives at home, takes her medications regularly, was doing fine in her usual state of health until yes terday evening time, she was noted to have some confusion and significant generalized weakness to the extent that she was not able to get up and move around, walk around. Ambulance was called by family and patient was brought into emergency room. After she was evaluated in the ER, she was admitted to the hospital under my service. This afternoon when I saw her, she was feeling much better. As soon as I walked in the room, she was able to recognize me and started communicating, providing all the i nformation and details. There was no family member at bedside, but the patient says that she really does not know why she got confused yesterday and why she was weak, but today she feels better. This morning at breakfast time, she was trying to eat, but because of her tremor, she was not able to feed herself and her friends tried to feed her, but she was not able to eat, so she is anxious to try and eat her lunch. Medications: List reviewed. Review of Systems: HAT BINDER: As mentioned above. Constitutional: As mentioned above. All other systems reviewed and negative. Allergies: TO PENICILLIN, CODEINE, TYLENOL, OPIOIDS, DILTIAZEM, MORPHINE. Past Medical History: Significant for DVT, biliary cirrhosis, type 2 diabetes mellitus, hyperlipidem ia, thrombocytopenia, hypertension, asthma, allergic rhinitis, gastroesophageal reflux disease, osteo penia, insomnia. Past Surgical History: Significant for pelvis fracture and this was in 2016, hysterectomy, tonsillec bernice. Family History: Not pertinent. Social History: Negative for smoking and alcohol use. Physical Examination: Vital Signs: When I saw her this afternoon last vital signs; temperature 97, pulse 67, respiratory r ate 18, blood pressure 162/70, oxygen saturation 97%, height 5 feet 3 inches, weight 130 pounds. General: Awake, alert, oriented, not in distress. HEENT: Head atraumatic, normocephalic. Conjunctivae nonerythematous. Sclerae white. Mouth, no thr ush or edema noted. Ears/Nose, no mass, lesion, discharge noted. Neck: Supple. No JVD, lymph nodes, bruit, thyromegaly noted. Lungs: Bilateral good equal air entry. Clear to auscultation. No rhonchi. No rales. Heart: Normal heart sounds, no murmur or gallop. Abdomen: Soft, bowel sounds normal. No guarding, rigidity, tenderness, mass, hepatosplenomegaly, dis tention, or bruit noted. Extremities: No leg edema. No calf tenderness. Skin: No rash, ulcer, cellulitis. Lymphatics: No lymph node enlargement in neck, supraclavicular, infraclavicular region. Neuro: No focal neurological deficit. Chest: Unremarkable. External Genitalia: Deferred. Rectal: Deferred. Laboratory Data: Yesterday white count 7.4, hemoglobin 14.5 platelets 173. This morning white count 7.4, hemoglobin 13.5, platelets 143. INR 1.35. This morning sodium 140, potassium 4, chloride 106, bicarb 27, BUN 20, creatinine 1.1, glucose 122. Last troponin 0.13. Yesterday sodium 138, potassiu m 4, chloride 100, bicarb 28, BUN 21, creatinine 1.30, glucose 148, total bilirubin 2.1, direct bilir ubin 0.8, SGOT 29, SGPT 19, alkaline phosphatase 109. Ammonia level was 94. ProBNP 856. Lipase 19. Urinalysis; 3+ esterase, otherwise negative. Chest x-ray, no acute cardiopulmonary changes. CAT s can of the head, no acute intracranial changes. Electrocardiogram; normal sinus rhythm, left bundle- branch block, no acute ST-T changes. Impression: 1.Hepatic encephalopathy. 2.Biliary cirrhosis. 3.Type 2 diabetes mellitus. 4.Hyperlipidemia. 5.Hypertension. 6.Gastroesophageal reflux disease. 7.Insomnia. 8.Allergic rhinitis. Plan: Admit the patient to hospital for further evaluation and management of this problem. We will go ahead and give lactulose per order. We will repeat blood work tomorrow morning. We will go ahead and use Pepcid per order. SCD will be applied for DVT prophylaxis and I will see her tomorrow for f ollowup. Possible discharge to go home tomorrow depending on her condition. Details and plan of roly atment discussed with her. Home medications will be continued per order. PAGE/MODL Voice ID: [id number]
[2018-02-21] MEDS: FUROSEMIDE 40 MG TABLET PO SCH (21:20)
[2018-02-21] MEDS: HYDRALAZINE HCL 10 MG TABLET PO SCH (21:21)
[2018-02-21] MEDS: SPIRONOLACTONE 25 MG TABLET PO SCH (21:21)
[2018-02-21] MEDS: PROPRANOLOL HCL 10 MG TAB PO SCH (21:21)
[2018-02-22] MEDS: LACTULOSE 20 GM/30 ML UCUP PO SCH ×3 (06:16→18:24)
[2018-02-22 06:29] LABS: Absolute Lymphocytes (CBC) 1.3 K/uL (0.7-4.9); Absolute Monocytes 0.8 K/uL (0.1-1.3); Absolute Neutrophil 4.8 K/uL (1.8-8.0); Basophils % 0.4 % (0-1.3); Hematocrit 38.9 % (36.0-45.0); Lymphocytes % 18.6 % (15.3-44.8); MCH 32.5 pg (27.0-35.0); MCV 94.6 fL (80-100); MPV 9.1 fL (7.6-11.3); Monocytes % 11.6 % (3.3-12.3); RBC Red Blood Cell Count 4.11 M/uL (3.86-4.86)
[2018-02-22 07:01] LABS: Magnesium 2.4 mg/dL (1.8-2.4); Potassium 3.4 mmol/L (3.5-5.1)
[2018-02-22] MEDS ORDERED: POTASSIUM CL SA 10 MEQ TAB PO ONE ×2 (07:13→21:00)
[2018-02-22] MEDS ORDERED: ASPIRIN EC 81 MG TAB PO SCH (09:00)
[2018-02-22] MEDS: CETIRIZINE HCL 5 MG TABLET PO SCH (09:04)
[2018-02-22] MEDS: FAMOTIDINE 20 MG/2 ML VIAL IV SCH ×2 (09:04→21:29)
[2018-02-22] MEDS: ASPIRIN EC 81 MG TAB PO SCH (09:05)
[2018-02-22] MEDS: HYDRALAZINE HCL 10 MG TABLET PO SCH ×2 (09:05→21:29)
[2018-02-22] MEDS: PROPRANOLOL HCL 10 MG TAB PO SCH ×2 (09:05→21:30)
[2018-02-22] MEDS: SPIRONOLACTONE 25 MG TABLET PO SCH ×2 (09:05→21:30)
[2018-02-22] MEDS: FUROSEMIDE 40 MG TABLET PO SCH ×2 (09:05→21:29)
[2018-02-22] MEDS: URSODIOL 500 MG TAB PO SCH (09:07)
--- NOTE | 2018-02-22 12:10 | PN ---
Date of Progress Note: 02/22/2018 Subjective: The patient was seen this morning for followup. No new complaints or problems reported by her. Her confusion problem has resolved, but weakness problem, that she had, has not been resolve d yet. The patient has not ambulated. This morning when I saw her, she was eating breakfast on her own and was able to eat, although she does not have good appetite, but she did not have any trouble e ating, feeding herself, or swallowing. I did encourage her to try to finish her breakfast as much as she can. Objective: Vital Signs: Reviewed. HEENT: Unremarkable. Lungs: Clear to auscultation. Heart: Sounds normal. Abdomen: Soft. Bowel sounds normal. No guarding, rigidity, tenderness, or distention. Extremities: No leg edema. Laboratory Data: White count 7.2, hemoglobin 13.4, platelets 118. Sodium 149, potassium 3.4, chlori de 113, bicarb 27, BUN 16, creatinine 1.1, glucose 119. Ammonia level is down to 67 today. Impression: 1.Hepatic encephalopathy. 2.Hypokalemia. 3.Biliary cirrhosis. 4.Thrombocytopenia. 5.Generalized weakness. Plan: We will go ahead and remove Hendrix catheter. Consult Physical Therapy to help ambulate the pat ient. Continue other current medical management. Replace electrolyte per protocol, and if the patie nt is not able to safely go home, then she may need to consider to go to prison facility for a while. The patient lives by herself at home, so we need to make sure that she is safe in terms of her ability to get up and move around prior to discharge. Details were discussed with her end. PAGE/MODL Voice ID: [id number] Report ID: [id number]
[2018-02-23] MEDS: LACTULOSE 20 GM/30 ML UCUP PO SCH ×4 (00:24→18:00)
[2018-02-23 04:17] VITALS: O2SAT 98
[2018-02-23 04:48] LABS: Potassium 4.5 mmol/L (3.5-5.1)
[2018-02-23] MEDS: URSODIOL 500 MG TAB PO SCH (09:27)
[2018-02-23] MEDS: PROPRANOLOL HCL 10 MG TAB PO SCH ×2 (09:28→20:59)
[2018-02-23] MEDS: HYDRALAZINE HCL 10 MG TABLET PO SCH ×2 (09:31→20:59)
[2018-02-23] MEDS: ASPIRIN EC 81 MG TAB PO SCH (09:31)
[2018-02-23] MEDS: FUROSEMIDE 40 MG TABLET PO SCH ×2 (09:31→21:00)
[2018-02-23] MEDS: SPIRONOLACTONE 25 MG TABLET PO SCH ×2 (09:31→20:59)
[2018-02-23] MEDS: CETIRIZINE HCL 5 MG TABLET PO SCH (09:31)
[2018-02-23] MEDS: FAMOTIDINE 20 MG/2 ML VIAL IV SCH ×2 (09:33→21:00)
[2018-02-24] MEDS: LACTULOSE 20 GM/30 ML UCUP PO SCH ×4 (00:52→12:25)
--- NOTE | 2018-02-24 03:04 | PN ---
Date of Progress Note: 02/23/2018 Subjective: The patient was seen this morning for followup. No new complaints or problems reported by her. Lying in bed, not in distress. Objective: Vital Signs: Reviewed. HEENT: Unremarkable. Lungs: Clear to auscultation. Heart: Sounds normal. Abdomen: Soft. Bowel sounds normal. No guarding, rigidity, tenderness, or distention. Extremities: No leg edema. Laboratory Data: Today, sodium 146, potassium 4.5, chloride 111, bicarb 26, BUN 15, and creatinine 1 .30. Impression: 1.Hepatic encephalopathy. 2.Biliary cirrhosis. 3.Generalized weakness. Plan: We will go ahead and consult Social Service. I did talk to the patient, she has significant g eneralized weakness and that creates concerns about her safety being alone at home as she lives by he rself. I explained it to her that she should try to have 24-hour care at home to start with and as h er condition improves, she can reduce her services at home or other option is to go to skilled nursin g facility for short-term stay. Social Service was consulted to assist with discharge planning and d epending on what arrangements gets made, we will decide if we can plan to discharge her to go home tomorrow or to care home depending on the p atient's decision. PAGE/MODL Voice ID: [id number] Report ID: [id number]
[2018-02-24 09:01] VITALS: BP 176/77; TEMP 97.2
[2018-02-24] MEDS: PROPRANOLOL HCL 10 MG TAB PO SCH (09:03)
[2018-02-24] MEDS: HYDRALAZINE HCL 10 MG TABLET PO SCH (09:03)
[2018-02-24] MEDS: URSODIOL 500 MG TAB PO SCH (09:03)
[2018-02-24] MEDS: FAMOTIDINE 20 MG/2 ML VIAL IV SCH (09:03)
[2018-02-24] MEDS: FUROSEMIDE 40 MG TABLET PO SCH (09:04)
[2018-02-24] MEDS: SPIRONOLACTONE 25 MG TABLET PO SCH (09:04)
[2018-02-24] MEDS: CETIRIZINE HCL 5 MG TABLET PO SCH (09:04)
[2018-02-24] MEDS: ASPIRIN EC 81 MG TAB PO SCH (09:04)
--- NOTE | 2018-02-25 18:56 | DS ---
Date of Discharge: 02/24/2018 Disposition: Discharged to go to [facility]. Physical Examination: Vital Signs: Reviewed. HEENT: Unremarkable. Lungs: Clear to auscultation. Heart: Sounds normal. Abdomen: Soft. Bowel sounds normal. No guarding, rigidity, tenderness, or distention. Extremities: No leg edema. Laboratory Data: Last CBC on 02/22/2018, white count 7.2, hemoglobin was 13.4, and platelets 118. Chemistry; last chemistry from yesterday, 02/23/2018, sodium 146, potassium 4.5, chloride 111, bicarb 26, BUN 15, creatinine 1.30, glucose 130. Last ammonia level on 02/22/2018 was 67. Hospital Course: An 87-year-old female patient, who lives alone at home, has biliary cirrhosis and multiple other comorbidities, was brought into emergency room with weakness and confusion. Please see dictated H and P for more information. Her initial ammonia level was 94. Workup done in the emergency room included negative chest x-ray. CAT scan of the head was negative for any acute intracranial changes. The patient was admitted to the hospital with hepatic encephalopathy. There was no evidence of any infection anywhere. She was started on lactulose and that actually helped to bring her ammonia level down. Her confusion problem got resolved. She has significant generalized weakness, which will require some intervention with physical therapy and considering she lives by herself at home, it is not safe for her to go back home , to start with upon discharge from the hospital, and it was recommended for her to either have 24 hour caregiver services available at home or go to nursing for a short time until her condition improves. Social Service was consulted. After the patient thought about it this morning, she told me that she would like to go to [facility] and Social Service was able to make arrangements, and the patient was discharged in stable condition with following discharge medication and instruction. Final Diagnoses: 1. Hepatic encephalopathy. 2. Generalized weakness. 3. Biliary cirrhosis. 4. Type 2 diabetes mellitus. 5. Hyperlipidemia. 6. Hypertension. 7. Gastroesophageal reflux disease. 8. Insomnia. 9. Allergic rhinitis. Discharge Medications And Instructions: 1. Continue prior home medications. 2. Take lactulose 20 g per 30 mL, the patient to take 30 mL by mouth 2 times a day. 3. Fall precautions. 4. Consult Physical Therapy and Occupational therapy at longterm. PAGE/MODL Voice ID: [id number] Report ID: [id number] MTDNadiya
== END 2018-02-24 14:50 ==
LOC: ER 18:08 → ERHOLD 18:41 → 4TH 20:37
PROVIDERS: ADMIT Internal Medicine; ATTEND Internal Medicine
DX: K72.90 Hepatic failure, unspecified without coma (principal); R53.1 Weakness; K74.5 Biliary cirrhosis, unspecified; E11.9 Type 2 diabetes mellitus without complications; I10 Essential (primary) hypertension; E78.5 Hyperlipidemia, unspecified; K21.9 Gastro-esophageal reflux disease without esophagitis; G47.00 Insomnia, unspecified; J30.9 Allergic rhinitis, unspecified; Z88.0 Allergy status to penicillin
CPT/HCPCS: 36415 ×2; 51702; 70450; 71045; 80048 ×4; 80076; 81003; 82140 ×2; 82962 ×2; 83605 ×2; 83690; 83735 ×2; 83880; 84132; 84484 ×3; 85025 ×3; 85610; 87040 ×2; 87088; 93005 ×2; 96365; 96368; 97116 ×2; 97163; 97530 ×2; 99285; G0378 ×2; J0696; 87086; J7030

== ENCOUNTER 2018-07-10 17:45 | Emergency (ER) | payer OTHER ==
--- NOTE | 2018-07-10 18:36 | RAD REPORT ---
EXAM DESCRIPTION: CT - Facial Bones W/ Mpr - 07/10/2018 6:24 pm CLINICAL HISTORY: Facial injury status post fall COMPARISON: None TECHNIQUE: Computed axial tomography of the face was obtained. Coronal and sagittal reconstruction w as performed. All CT scans are performed using dose optimization technique as appropriate and may include automated exposure control or mA/KV adjustment according to patient size. FINDINGS: Right supraorbital hematoma. A fracture is not seen. A TMJ dislocation is not noted. The globes are intact. Fluid within the sinuses is not seen. Chronic sphenoid opacification. IMPRESSION: Negative for a facial fracture.
--- NOTE | 2018-07-10 18:45 | RAD REPORT ---
EXAM DESCRIPTION: CT - Head C Spine Mpr Wo Con - 07/10/2018 6:18 pm CLINICAL HISTORY: Head and neck injury status post fall. Head and neck pain COMPARISON: None. TECHNIQUE: Computed axial tomography of the head and cervical spine was obtained. Sagittal and coronal reconstruction was performed. All CT scans are performed using dose optimization technique as appropriate and may include automated exposure control or mA/KV adjustment according to patient size. FINDINGS: Large right frontal scalp hematoma without an underlying skull fracture. Evaluation of portions of the cerebellum is very limited secondary to extensive beam hardening artifa ct. Moderate low-density areas within periventricular, deep and subcortical white matter likely ischemic changes secondary to small vessel disease An intracranial bleed is not seen. The ventricles are normal in caliber. An extra-axial fluid collect ion is not noted.Fluid within the visualized sinuses and mastoids is not seen A cervical fracture is not visualized. No dislocation is noted. IMPRESSION: No acute intracranial abnormality is seen. A cervical fracture is not visualized. If the patient continues to have symptoms to suggest intracra nial /spinal cord pathology then MRI would be recommended
--- NOTE | 2018-07-10 19:37 | ER ---
Nurse's Notes [facility] Name: Adwoa Espinosa Age: 88 yrs Sex: Female : 1930 Arrival Date: 07/10/2018 Time: 17:48 Bed 28 Private MD: Diagnosis: Superficial injury of head;Contusion of right knee Presentation: 07/10 17:50 Presenting complaint: EMS states: patient was walking down the lan when she fell and mg2 fell on her face. sustained hematoma on her forehead and skin tear in the right cheek. she is on plavix and aspirin. denies back, neck pain and n/v or loc. c- collar was in placed. Mechanism of Injury: Fall from standing position. Trauma event details: Injury occurred in the [facility], Injury occurred at: 17:30. 17:51 Transition of care: patient was received from another setting of care (long-term care [facility] facility), [facility]. Onset of symptoms was July 10, 2018. Risk Assessment: Do you want to hurt yourself or someone else? Patient reports no desire to harm self or others. Initial Sepsis Screen: Does the patient meet any 2 criteria? No. Patient's initial sepsis screen is negative. Does the patient have a suspected source of infection? No. Patient's initial sepsis screen is negative. Care prior to arrival: Cervical collar in place. 17:51 Acuity: XAVIER 2 tw2 17:51 Method Of Arrival: EMS: [facility] 2 Triage Assessment: 17:57 General: Appears in no apparent distress. comfortable, Behavior is calm, cooperative. mg2 Pain: Complains of pain in face. EENT:. Neuro: Level of Consciousness is awake, alert, obeys commands, Oriented to person, place, time, situation. Cardiovascular: Capillary refill < 3 seconds Patient's skin is warm and dry. Respiratory: Airway is patent Respiratory effort is even, unlabored, Respiratory pattern is regular, symmetrical. GI: No signs and/or symptoms were reported involving the gastrointestinal system. : No deficits noted. Derm: Skin. Trauma Activation: Alert Physician: ED Physician; Name: ; Notified At: ; Arrived At: Physician: General Surgeon; Name: ; Notified At: ; Arrived At: Physician: Radiology; Name: ; Notified At: ; Arrived At: Physician: Respiratory; Name: ; Notified At: ; Arrived At: Physician: Lab; Name: ; Notified At: ; Arrived At: Historical: - Allergies: 18:10 ACETAMINOPHEN; mg2 18:10 Opioids-Meperidine Related; mg2 18:10 PENICILLINS; mg2 18:10 Codeine; mg2 18:10 Demerol; mg2 18:10 Morphine; mg2 18:10 Diltiazem; mg2 - Home Meds: 18:10 furosemide 40 mg Oral tab 1 tab 2 times per day [Active]; hydralazine 10 mg Oral tab 1 mg2 tab 2 times per day [Active]; omeprazole 40 mg Oral cpDR 1 cap once daily [Active]; propranolol 20 mg Oral tab 2 times per day [Active]; spironolactone 25 mg Oral tab 1 tab once daily [Active]; ursodiol 500 mg Oral tab daily [Active]; - PMHx: 18:10 Arthritis; Atrial Fib; Cirrhosis; Hypertension; mg2 - Immunization history: Last tetanus immunization: unknown. - Social history:: Smoking status: Patient/guardian denies using tobacco, Patient/guardian denies using alcohol, street drugs, IV drugs. - Ebola Screening: : No symptoms or risks identified at this time. Screenin:51 Abuse screen: Denies threats or abuse. Nutritional screening: No deficits noted. tw2 Tuberculosis screening: No symptoms or risk factors identified. Fall Risk Secondary diagnosis (15 points) impaired mobility. Primary Survey: 17:49 NO uncontrolled hemorrhage observed. A: The patient is alert. Airway: patent. tw2 Breathing/Chest: Respiratory pattern: regular, Respiratory effort: spontaneous, unlabored. Circulation: Skin color: pink, Skin temperature: warm, dry. Disability Alert. Exposure/Environment: Obvious injury(ies) are noted at this time: right sided facial swelling to forehead, right eye, and right cheek bone. 19:35 Reassessment Airway Airway Patent Breathing/Chest Respiratory pattern Regular mg2 Respiratory effort Spontaneous Unlabored Breath sounds Clear Circulation Color [place] Disability Alert. Secondary Survey: 17:55 HEENT: Head No injury/deformity Face Other swollen forehead and skin tear in the right mg2 cheek. Gastrointestinal: No deficits noted. : No deficits noted. Musculoskeletal: Circulation, motion, and sensation intact. Capillary refill < 3 seconds, Swelling present in face. Injury Description: hematoma to face. Assessment: 17:52 General: Appears in no apparent distress. comfortable, Behavior is calm, cooperative. mg2 Pain: Complains of pain in face Pain does not radiate. Pain currently is 4 out of 10 on a pain scale. Quality of pain is described as aching, Pain began suddenly, 30 min ago. Is intermittent. Neuro: Level of Consciousness is awake, alert, obeys commands, Oriented to person, place, time, situation. EENT: Cardiovascular: Capillary refill < 3 seconds Patient's skin is warm and dry. Respiratory: Airway is patent Respiratory effort is even, unlabored, Respiratory pattern is regular, symmetrical. GI: No signs and/or symptoms were reported involving the gastrointestinal system. : No signs and/or symptoms were reported regarding the genitourinary system. Derm: Skin is healthy with good turgor, has skin tears on in the right side of the face Bruising that is dark purple, on forehead. Musculoskeletal: Circulation, motion, and sensation intact. Capillary refill < 3 seconds, Swelling present in forehead. Injury Description: Bruise sustained to forehead is purple, was sustained less than 30 minutes ago. Vital Signs: 17:49 BP 161 / 62; Pulse 81; Resp 18; Temp 98.6; Pulse Ox 97% on R/A; tw2 18:01 Weight 57.15 kg; Height 5 ft. 0 in. (152.40 cm); mg2 19:59 BP 145 / 53; Pulse 80; Resp 18; Pulse Ox 100% on R/A; Pain 2/10; mg2 18:01 Body Mass Index 24.61 (57.15 kg, 152.40 cm) mg2 [place] Coma Score: 17:50 Eye Response: spontaneous(4). Verbal Response: oriented(5). Motor Response: obeys tw2 commands(6). Total: 15. 19:59 Eye Response: spontaneous(4). Verbal Response: oriented(5). Motor Response: obeys mg2 commands(6). Total: 15. Trauma Score (Adult): 17:50 Eye Response: spontaneous(1); Verbal Response: oriented(1); Motor Response: obeys tw2 commands(2); Systolic BP: > 89 mm Hg(4); Respiratory Rate: 10 to 29 per min(4); [place] Score: 15; Trauma Score: 12 19:59 Eye Response: spontaneous(1); Verbal Response: oriented(1); Motor Response: obeys mg2 commands(2); Systolic BP: > 89 mm Hg(4); Respiratory Rate: 10 to 29 per min(4); [place] Score: 15; Trauma Score: 12 ED Course: 17:48 Patient arrived in ED. tw2 17:48 Bed in low position. Call light in reach. Side rails up X2. potline monitor on. Pulse tw2 ox on. NIBP on. Warm blanket given. 17:51 Irwin Umanzor, RN is Primary Nurse. mg2 17:51 Patient maintains SpO2 saturation greater than 95% on room air. Thermoregulation: warm tw2 blanket given to patient. 17:51 Arm band placed on. tw2 17:52 Triage completed. tw2 18:01 Maykel Lee PA is PHCP. jr8 18:01 Jarrett New MD is Attending Physician. jr8 18:17 CT Head C Spine In Process Unspecified. EDMS 18:24 CT Facial Bones W/O Con In Process Unspecified. EDMS 19:22 XRAY Knee RIGHT 3 view In Process Unspecified. EDMS 20:01 No provider procedures requiring assistance completed. Patient did not have IV access mg2 during this emergency room visit. Administered Medications: No medications were administered Intake: 19:59 PO: 0ml; Total: 0ml. mg2 Outcome: 19:36 Discharge ordered by . jr8 20:00 Discharged to home via wheelchair, with family. mg2 20:00 Condition: stable 20:00 Discharge instructions given to patient, family, Instructed on discharge instructions, follow up and referral plans. Demonstrated understanding of instructions, follow-up care. 20:01 Patient's length of stay was not longer than 2 hours. mg2 20:01 Patient left the ED. mg2 Signatures: Dispatcher [employer] EDMS Maykel Lee PA PA jr8 Fay Farmer RN RN tw2 Irwin Umanzor RN RN mg2
--- NOTE | 2018-07-10 19:37 | RAD REPORT ---
EXAM DESCRIPTION: RAD - Knee Right 3 View - 07/10/2018 7:23 pm CLINICAL HISTORY: Right knee pain status post fall FINDINGS: No fracture or dislocation is seen. If bones are osteoporotic
--- NOTE | 2018-07-10 19:37 | EDPHYS ---
Physician Documentation [facility] Name: Adwoa Espinosa Age: 88 yrs Sex: Female : 1930 Arrival Date: 07/10/2018 Time: 17:48 Bed 28 Private MD: ED Physician Jarrett New HPI: 07/10 18:58 This 88 yrs old Female presents to ER via EMS with complaints of Fall Injury. jr8 19:00 Details of fall: The patient fell from an upright position, while standing. Onset: The jr8 symptoms/episode began/occurred acutely, today. Associated injuries: The patient sustained injury to the head. Severity of symptoms: At their worst the symptoms were mild, in the emergency department the symptoms are unchanged. The patient has not experienced similar symptoms in the past. The patient has not recently seen a physician. Patient stated that she was walking to common room and tripped falling on face. Denies LOC. Mild pain to face. Denies any other pain . Historical: - Allergies: 18:10 ACETAMINOPHEN; mg2 18:10 Opioids-Meperidine Related; mg2 18:10 PENICILLINS; mg2 18:10 Codeine; mg2 18:10 Demerol; mg2 18:10 Morphine; mg2 18:10 Diltiazem; mg2 - Home Meds: 18:10 furosemide 40 mg Oral tab 1 tab 2 times per day [Active]; hydralazine 10 mg Oral tab 1 mg2 tab 2 times per day [Active]; omeprazole 40 mg Oral cpDR 1 cap once daily [Active]; propranolol 20 mg Oral tab 2 times per day [Active]; spironolactone 25 mg Oral tab 1 tab once daily [Active]; ursodiol 500 mg Oral tab daily [Active]; - PMHx: 18:10 Arthritis; Atrial Fib; Cirrhosis; Hypertension; mg2 - Immunization history: Last tetanus immunization: unknown. - Social history:: Smoking status: Patient/guardian denies using tobacco, Patient/guardian denies using alcohol, street drugs, IV drugs. - Ebola Screening: : No symptoms or risks identified at this time. ROS: 19:00 ENT: Negative for injury, pain, and discharge, Neck: Negative for injury, pain, and jr8 swelling, Cardiovascular: Negative for chest pain, palpitations, and edema, Respiratory: Negative for shortness of breath, cough, wheezing, and pleuritic chest pain, Abdomen/GI: Negative for abdominal pain, nausea, vomiting, diarrhea, and constipation, Back: Negative for injury and pain, MS/Extremity: Negative for injury and deformity, Skin: Negative for injury, rash, and discoloration, Neuro: Negative for headache, weakness, numbness, tingling, and seizure. 19:00 Eyes: Positive for swelling, of the right eye. Exam: 19:03 ENT: Nares patent. No nasal discharge, no septal abnormalities noted. Tympanic jr8 membranes are normal and external auditory canals are clear. Oropharynx with no redness, swelling, or masses, exudates, or evidence of obstruction, uvula midline. Mucous membranes moist. Neck: Trachea midline, no thyromegaly or masses palpated, and no cervical lymphadenopathy. Supple, full range of motion without nuchal rigidity, or vertebral point tenderness. No Meningismus. Cardiovascular: Regular rate and rhythm with a normal S1 and S2. No gallops, murmurs, or rubs. Normal PMI, no JVD. No pulse deficits. Respiratory: Lungs have equal breath sounds bilaterally, clear to auscultation and percussion. No rales, rhonchi or wheezes noted. No increased work of breathing, no retractions or nasal flaring. Abdomen/GI: Soft, non-tender, with normal bowel sounds. No distension or tympany. No guarding or rebound. No evidence of tenderness throughout. Back: No spinal tenderness. No costovertebral tenderness. Full range of motion. Skin: Warm, dry with normal turgor. Normal color with no rashes, no lesions, and no evidence of cellulitis. MS/ Extremity: Pulses equal, no cyanosis. Neurovascular intact. Full, normal range of motion. Neuro: Awake and alert, GCS 15, oriented to person, place, time, and situation. Cranial nerves II-XII grossly intact. Motor strength 5/5 in all extremities. Sensory grossly intact. Cerebellar exam normal. Normal gait. 19:03 Head/face: Noted is abrasion(s), that are mild, of the forehead, right cheek and nose, hematoma, that is moderate, of the right side forehead. 19:03 Eyes: Periorbital structures: swelling, that is mild, on the right supraorbital ridge and right upper eyelid, Pupils: equal, round, and reactive to light and accomodation, Extraocular movements: intact throughout, Conjunctiva: normal, Corneas: are normal, Sclera: no appreciated abnormality, Anterior chamber: normal, Lids and lashes: appear normal. Vital Signs: 17:49 BP 161 / 62; Pulse 81; Resp 18; Temp 98.6; Pulse Ox 97% on R/A; tw2 18:01 Weight 57.15 kg; Height 5 ft. 0 in. (152.40 cm); mg2 19:59 BP 145 / 53; Pulse 80; Resp 18; Pulse Ox 100% on R/A; Pain 2/10; mg2 18:01 Body Mass Index 24.61 (57.15 kg, 152.40 cm) mg2 Vlad Coma Score: 17:50 Eye Response: spontaneous(4). Verbal Response: oriented(5). Motor Response: obeys tw2 commands(6). Total: 15. 19:59 Eye Response: spontaneous(4). Verbal Response: oriented(5). Motor Response: obeys mg2 commands(6). Total: 15. Trauma Score (Adult): 17:50 Eye Response: spontaneous(1); Verbal Response: oriented(1); Motor Response: obeys tw2 commands(2); Systolic BP: > 89 mm Hg(4); Respiratory Rate: 10 to 29 per min(4); [place] Score: 15; Trauma Score: 12 19:59 Eye Response: spontaneous(1); Verbal Response: oriented(1); Motor Response: obeys mg2 commands(2); Systolic BP: > 89 mm Hg(4); Respiratory Rate: 10 to 29 per min(4); Vlad Score: 15; Trauma Score: 12 MDM: 18:10 Patient medically screened. jr8 19:23 Data reviewed: vital signs, nurses notes, radiologic studies, CT scan, plain films, and jr8 as a result, I will discharge patient. Data interpreted: Pulse oximetry: on room air is 97 %. Interpretation: normal. Counseling: I had a detailed discussion with the patient and/or guardian regarding: the historical points, exam findings, and any diagnostic results supporting the discharge/admit diagnosis, radiology results, the need for outpatient follow up, a family practitioner, to return to the emergency department if symptoms worsen or persist or if there are any questions or concerns that arise at home. 07/10 18:10 Order name: CT Head C Spine; Complete Time: 19:02 jr8 07/10 18:17 Order name: CT Facial Bones W/O Con; Complete Time: 19:02 jr8 07/10 19:02 Order name: XRAY Knee RIGHT 3 view; Complete Time: 19:39 jr8 Administered Medications: No medications were administered Disposition: 07/10/18 19:36 Discharged to Home. Impression: Superficial injury of head, Contusion of right knee. - Condition is Stable. - Discharge Instructions: Head Injury, Adult, Hematoma, Knee Pain. - Medication Reconciliation Form, Thank You Letter, Antibiotic Education, Prescription Opioid Use form. - Follow up: Private Physician; When: 2 - 3 days; Reason: Recheck today's complaints, Continuance of care, Re-evaluation by your physician. - Problem is new. - Symptoms have improved. Addendum: 07/13/2018 08:29 Co-signature as Attending Physician, Jarrett New MD I agree with the assessment and k dr plan of care. Signatures: Dispatcher [employer] EDMS Jarrett New MD MD kdr Maykel Lee PA PA jr8 Irwin Umanzor RN RN mg2 Corrections: (The following items were deleted from the chart) 07/10 20:01 19:36 07/10/2018 19:36 Discharged to Home. Impression: Superficial injury of head; mg2 Contusion of right knee. Condition is Stable. Forms are Medication Reconciliation Form, Thank You Letter, Antibiotic Education, Prescription Opioid Use. Follow up: Private Physician; When: 2 - 3 days; Reason: Recheck today's complaints, Continuance of care, Re-evaluation by your physician. Problem is new. Symptoms have improved. jr8
[2018-07-10 20:16] VITALS: TEMP 98.6
[2018-07-10 20:18] VITALS: BP 145/53; O2SAT 100
== END 2018-07-10 20:01 | disposition home or self-care (01) ==
LOC: ER 17:45
DX: S00.90XA Unspecified superficial injury of unspecified part of head, initial encounter (principal); S80.01XA Contusion of right knee, initial encounter; W01.0XXA Fall on same level from slipping, tripping and stumbling without subsequent striking against object, initial encounter; Y93.89 Activity, other specified; Y92.89 Other specified places as the place of occurrence of the external cause; Z88.0 Allergy status to penicillin; Z88.5 Allergy status to narcotic agent; Z88.6 Allergy status to analgesic agent; Z88.8 Allergy status to other drugs, medicaments and biological substances; I10 Essential (primary) hypertension; I48.91 Unspecified atrial fibrillation
CPT/HCPCS: 70450; 70486; 72125; 76377; 99284

== ENCOUNTER 2018-07-17 08:50 | Emergency (ER) | payer OTHER ==
[2018-07-17] MEDS ORDERED: ALBUTEROL 2.5 MG/3 ML NEB SOL ONE (09:37)
--- NOTE | 2018-07-17 09:57 | RAD REPORT ---
EXAM DESCRIPTION: Eugenie Villegas (2 Views)07/17/2018 9:39 am CLINICAL HISTORY: Cough COMPARISON: January 2018 FINDINGS: The lungs appear clear of acute infiltrate. The heart is normal size IMPRESSION: No acute abnormalities displayed
--- NOTE | 2018-07-17 11:05 | ER ---
Nurse's Notes [facility] Name: Adwoa Espinosa Age: 88 yrs Sex: Female : 1930 Arrival Date: 07/17/2018 Time: 08:53 Bed 19 Private MD: Leslie Noonan C Diagnosis: Bronchitis, not specified as acute or chronic;Cough Presentation: 07/17 09:06 Presenting complaint: Patient states: cough and congestion for 2-3 days, reports em coughing yellow sputum, denies fever, SOB, chest pain. Transition of care: patient was not received from another setting of care. Onset of symptoms was July 14, 2018. Risk Assessment: Do you want to hurt yourself or someone else? Patient reports no desire to harm self or others. Initial Sepsis Screen: Does the patient meet any 2 criteria? No. Patient's initial sepsis screen is negative. Does the patient have a suspected source of infection? Yes: Productive cough/pneumonia. Care prior to arrival: None. 09:06 Method Of Arrival: Wheelchair em 09:07 Acuity: XAVIER 4 hb Triage Assessment: 09:19 General: Appears in no apparent distress. comfortable, Behavior is calm, cooperative. em Pain: Complains of pain in diaphragm. Respiratory: Airway is patent Respiratory effort is even, unlabored, Respiratory pattern is regular, symmetrical, Breath sounds with wheezes bilaterally. Historical: - Allergies: 09:19 ACETAMINOPHEN; em 09:19 Codeine; em 09:19 Demerol; em 09:19 Diltiazem; em 09:19 Morphine; em 09:19 Opioids-Meperidine Related; em 09:19 PENICILLINS; em - Home Meds: 09:19 furosemide 40 mg Oral tab 1 tab 2 times per day [Active]; spironolactone 25 mg Oral tab em 1 tab once daily [Active]; hydralazine 10 mg Oral tab 1 tab 2 times per day [Active]; omeprazole 20 mg oral TbEC 20 mg daily [Active]; propranolol 20 mg Oral tab 1 tab 2 times per day [Active]; ursodiol 500 mg Oral tab daily [Active]; aspirin 81 mg Oral chew 1 tab once daily [Active]; cetirizine 10 mg oral tab 1 tab once daily [Active]; Generlac 10 gram/15 mL oral soln [Active]; - PMHx: 09:19 Arthritis; Atrial Fib; Cirrhosis; Hypertension; em - PSHx: 09:19 hip surgery; Hysterectomy; em - Immunization history:: Adult Immunizations up to date. - Social history:: Smoking status: Patient/guardian denies using tobacco. - Ebola Screening: : Patient negative for fever greater than or equal to 101.5 degrees Fahrenheit, and additional compatible Ebola Virus Disease symptoms Patient denies exposure to infectious person Patient denies travel to an Ebola-affected area in the 21 days before illness onset No symptoms or risks identified at this time. Screenin:06 Abuse screen: Denies threats or abuse. Nutritional screening: No deficits noted. em Tuberculosis screening: No symptoms or risk factors identified. Fall Risk None identified. Assessment: 09:10 General: Appears in no apparent distress. comfortable, Behavior is calm, cooperative, em Denies fever. Pain: Complains of pain in diaphragm Unable to use pain scale. FLACC scale score is 3 out of 10. Neuro: Level of Consciousness is awake, alert, obeys commands, Oriented to person, place, time, situation. Cardiovascular: Heart tones S1 S2 present Capillary refill < 3 seconds Patient's skin is warm and dry. Respiratory: Airway is patent Respiratory effort is even, unlabored, Respiratory pattern is regular, symmetrical, Breath sounds with wheezes bilaterally. Onset: The symptoms/episode began/occurred 2-3 days , the patient has mild shortness of breath. GI: Abdomen is flat. Derm: Skin is healthy with good turgor, Bruising that is bright red, dark purple, on face and right arm fell 1 week ago, hematoma noted the to right side of forehead. Musculoskeletal: Capillary refill < 3 seconds, Range of motion: intact in all extremities. 09:20 Reassessment: I agree with previous assessment. hb 10:23 Reassessment: spoke with Amee from [facility], pt currently is not taking any em antibiotics, reports the office never called the medication into the pharmacy. 11:12 Reassessment: Patient appears in no apparent distress at this time. Patient and/or em family updated on plan of care and expected duration. Pain level reassessed. Patient is alert, oriented x 3, equal unlabored respirations, skin warm/dry/pink. pt up for discharge, pending medication from pharmacy. 11:40 Reassessment: notified pharmacy of medication order, reports they will be bringing it em down shortly, charge nurse notified. Vital Signs: 09:19 BP 176 / 70; Pulse 79; Resp 22; Temp 98.3(O); Pulse Ox 100% on R/A; Weight 57.15 kg; em Height 5 ft. 1 in. (154.94 cm); 10:30 BP 143 / 56; Pulse 69; Resp 19; Pulse Ox 97% on R/A; dh3 11:19 BP 155 / 60; Pulse 71; Resp 18; Pulse Ox 99% on R/A; em 09:19 Body Mass Index 23.81 (57.15 kg, 154.94 cm) em ED Course: 08:53 Patient arrived in ED. mr 08:53 Leslie Noonan MD is Private Physician. mr 08:57 Pilar Aguay[facility] F[facility]-C [facility]. snw 08:57 Jarrett New MD is Attending Physician. snw 09:06 Jabari Jonas LVN is Primary Nurse. em 09:10 Patient has correct armband on for positive identification. Placed in gown. Bed in low em position. Call light in reach. Side rails up X2. Adult w/ patient. Pulse ox on. NIBP on. 09:18 Triage completed. hb 09:19 Arm band placed on. em 09:36 X-ray completed. Patient tolerated procedure well. Patient moved to radiology via jb2 wheelchair. Patient moved back from radiology. 09:37 Chest Pa And Lat (2 Views) XRAY In Process Unspecified. EDMS 10:59 Leslie Noonan MD is Referral Physician. snw 12:17 No provider procedures requiring assistance completed. Patient did not have IV access em during this emergency room visit. Administered Medications: 09:45 Drug: Albuterol 2.5 mg Route: Inhalation; em 09:45 Drug: Albuterol 2.5 mg Route: Inhalation; em 09:45 Drug: Albuterol 2.5 mg Route: Inhalation; em 12:16 Drug: Biaxin 500 mg Route: PO; em 12:17 Follow up: Response: Medication administered at discharge. em Outcome: 11:04 Discharge ordered by . snw 12:17 Discharged to home ambulatory, with family. em 12:17 Condition: good 12:17 Discharge instructions given to patient, family, Instructed on discharge instructions, follow up and referral plans. medication usage, Demonstrated understanding of instructions, follow-up care, medications, Prescriptions given X 2. 12:18 Patient left the ED. em Signatures: Dispatcher [employer] EDPilar Daniels, TEAM ASSISTANT-C TEAM ASSISTANT-Csnw MishraSarah mr Weeks, Jesus jb2 Jabari Jonas, SITE PROJECT MANAGER SITE PROJECT MANAGER em Enma Rivas, JERMAINE RN [facility]
--- NOTE | 2018-07-17 11:05 | EDPHYS ---
Physician Documentation [facility] Name: Adwoa Espinosa Age: 88 yrs Sex: Female : 1930 Arrival Date: 07/17/2018 Time: 08:53 Bed 19 Private MD: Leslie Noonan C ED Physician Jarrett New HPI: 07/17 09:26 This 88 yrs old Female presents to ER via Wheelchair with complaints of snw Cough, Congestion. 09:26 The patient or guardian reports cough. Onset: The symptoms/episode began/occurred snw suddenly, 3 day(s) ago, and became persistent. Severity of symptoms: At their worst the symptoms were moderate. Associated signs and symptoms: Pertinent positives: cough, wheezing. The patient has experienced similar episodes in the past. The patient has been recently seen by a physician: The patient has been recently seen at the [facility] Emergency Department, last week, for unrelated complaints, pt fell last week, + ecchymosis to face and neck, healing skin tears to head and hands. Historical: - Allergies: 09:19 ACETAMINOPHEN; em 09:19 Codeine; em 09:19 Demerol; em 09:19 Diltiazem; em 09:19 Morphine; em 09:19 Opioids-Meperidine Related; em 09:19 PENICILLINS; em - Home Meds: 09:19 furosemide 40 mg Oral tab 1 tab 2 times per day [Active]; spironolactone 25 mg Oral tab em 1 tab once daily [Active]; hydralazine 10 mg Oral tab 1 tab 2 times per day [Active]; omeprazole 20 mg oral TbEC 20 mg daily [Active]; propranolol 20 mg Oral tab 1 tab 2 times per day [Active]; ursodiol 500 mg Oral tab daily [Active]; aspirin 81 mg Oral chew 1 tab once daily [Active]; cetirizine 10 mg oral tab 1 tab once daily [Active]; Generlac 10 gram/15 mL oral soln [Active]; - PMHx: 09:19 Arthritis; Atrial Fib; Cirrhosis; Hypertension; em - PSHx: 09:19 hip surgery; Hysterectomy; em - Immunization history:: Adult Immunizations up to date. - Social history:: Smoking status: Patient/guardian denies using tobacco. - Ebola Screening: : Patient negative for fever greater than or equal to 101.5 degrees Fahrenheit, and additional compatible Ebola Virus Disease symptoms Patient denies exposure to infectious person Patient denies travel to an Ebola-affected area in the 21 days before illness onset No symptoms or risks identified at this time. ROS: 09:24 Constitutional: Negative for fever, chills, and weight loss, Eyes: Negative for injury, snw pain, redness, and discharge, ENT: Negative for injury, pain, and discharge, Neck: Negative for injury, pain, and swelling, Cardiovascular: Negative for chest pain, palpitations, and edema, Abdomen/GI: Negative for abdominal pain, nausea, vomiting, diarrhea, and constipation, Back: Negative for injury and pain, : Negative for injury, bleeding, discharge, and swelling, MS/Extremity: Negative for injury and deformity, Skin: Negative for injury, rash, and discoloration, Neuro: Negative for headache, weakness, numbness, tingling, and seizure. 09:24 Respiratory: Positive for cough, wheezing. Exam: 09:19 Constitutional: This is a well developed, well nourished patient who is awake, alert, snw and in no acute distress. Eyes: Pupils equal round and reactive to light, extra-ocular motions intact. Lids and lashes normal. Conjunctiva and sclera are non-icteric and not injected. Cornea within normal limits. Periorbital areas with no swelling, redness, or edema. ENT: Nares patent. No nasal discharge, no septal abnormalities noted. Tympanic membranes are normal and external auditory canals are clear. Oropharynx with no redness, swelling, or masses, exudates, or evidence of obstruction, uvula midline. Mucous membranes moist. Neck: Trachea midline, no thyromegaly or masses palpated, and no cervical lymphadenopathy. Supple, full range of motion without nuchal rigidity, or vertebral point tenderness. No Meningismus. Chest/axilla: Normal chest wall appearance and motion. Nontender with no deformity. No lesions are appreciated. Cardiovascular: Regular rate and rhythm with a normal S1 and S2. No gallops, murmurs, or rubs. Normal PMI, no JVD. No pulse deficits. 09:19 Back: No spinal tenderness. No costovertebral tenderness. Full range of motion. MS/ Extremity: Pulses equal, no cyanosis. Neurovascular intact. Full, normal range of motion. Neuro: Awake and alert, GCS 15, oriented to person, place, time, and situation. Cranial nerves II-XII grossly intact. Motor strength 5/5 in all extremities. Sensory grossly intact. Cerebellar exam with athetosic movements Psych: Awake, alert, with orientation to person, place and time. Behavior, mood, and affect are within normal limits. 09:19 Respiratory: mild respiratory distress is noted, Respirations: shallow respirations, tachypnea, Breath sounds: bronchial sounds, are heard diffusely, wheezing: wet cough. 09:25 Head/face: Noted is contusion, that is deep, confluent ecchymosis from fall last week. snw 09:25 Skin: Appearance: ecchymosis, that are moderate, that are marked, of the face. Vital Signs: 09:19 BP 176 / 70; Pulse 79; Resp 22; Temp 98.3(O); Pulse Ox 100% on R/A; Weight 57.15 kg; em Height 5 ft. 1 in. (154.94 cm); 10:30 BP 143 / 56; Pulse 69; Resp 19; Pulse Ox 97% on R/A; dh3 11:19 BP 155 / 60; Pulse 71; Resp 18; Pulse Ox 99% on R/A; em 09:19 Body Mass Index 23.81 (57.15 kg, 154.94 cm) em MDM: 09:46 Patient medically screened. snw 11:25 Data reviewed: vital signs, nurses notes. Data interpreted: Pulse oximetry: on room air snw is 99 %. Interpretation: normal. Counseling: I had a detailed discussion with the patient and/or guardian regarding: the historical points, exam findings, and any diagnostic results supporting the discharge/admit diagnosis, the presence of at least one elevated blood pressure reading (>120/80) during this emergency department visit, radiology results, the need for outpatient follow up, to return to the emergency department if symptoms worsen or persist or if there are any questions or concerns that arise at home. Response to treatment: the patient's symptoms have markedly improved after treatment. 07/17 09:11 Order name: Chest Pa And Lat (2 Views) XRAY; Complete Time: 10:09 snw Administered Medications: :45 Drug: Albuterol 2.5 mg Route: Inhalation; em 09:45 Drug: Albuterol 2.5 mg Route: Inhalation; em 09:45 Drug: Albuterol 2.5 mg Route: Inhalation; em 12:16 Drug: Biaxin 500 mg Route: PO; em 12:17 Follow up: Response: Medication administered at discharge. em Disposition: 13:17 Co-signature as Attending Physician, Jarrett New MD I agree with the assessment and kdr plan of care. Disposition: 07/17/18 11:04 Discharged to Home. Impression: Bronchitis, not specified as acute or chronic, Cough. - Condition is Stable. - Discharge Instructions: Acute Bronchitis, Adult, Hypertension, How to Use an Inhaler, Cool Mist Vaporizer. - Prescriptions for Biaxin 500 mg Oral Tablet - take 1 tablet by ORAL route every 12 hours for 10 days; 20 tablet. Albuterol Sulfate 90 mcg/actuation - inhale 1-2 puff by INHALATION route every 4-6 hours; 1 Inhaler. - Medication Reconciliation Form, Thank You Letter, Antibiotic Education, Prescription Opioid Use form. - Follow up: Emergency Department; When: 2 - 3 days; Reason: Recheck today's complaints, Continuance of care, Re-evaluation by your physician. Follow up: Leslie Noonan MD; When: 5 - 6 days; Reason: Recheck today's complaints, Continuance of care, Re-evaluation by your physician. Signatures: Dispatcher [employer] Jarrett Armstrong MD MD [facility] Pilar Aguayo, PILATES INSTRUCTOR-C PILATES INSTRUCTOR-Csnw Jabari Jonas, AIRCRAFT PART ASSEMBLER AIRCRAFT PART ASSEMBLER em Corrections: (The following items were deleted from the chart) 12:18 11:04 07/17/2018 11:04 Discharged to Home. Impression: Bronchitis, not specified as em acute or chronic; Cough. Condition is Stable. Forms are Medication Reconciliation Form, Thank You Letter, Antibiotic Education, Prescription Opioid Use. Follow up: Emergency Department; When: 2 - 3 days; Reason: Recheck today's complaints, Continuance of care, Re-evaluation by your physician. Follow up: Leslie Noonan; When: 5 - 6 days; Reason: Recheck today's complaints, Continuance of care, Re-evaluation by your physician. snw
[2018-07-17] MEDS ORDERED: CLARITHROMYCIN 500 MG TABLET PO ONE (11:15)
[2018-07-17 13:20] VITALS: TEMP 98.3
[2018-07-17 13:22] VITALS: BP 155/60; O2SAT 99
== END 2018-07-17 12:18 | disposition home or self-care (01) ==
LOC: ER 08:50
DX: J40 Bronchitis, not specified as acute or chronic (principal); I10 Essential (primary) hypertension; I48.91 Unspecified atrial fibrillation; K74.60 Unspecified cirrhosis of liver; Z79.82 Long term (current) use of aspirin; Z88.0 Allergy status to penicillin; Z88.5 Allergy status to narcotic agent; Z88.6 Allergy status to analgesic agent; Z88.8 Allergy status to other drugs, medicaments and biological substances
CPT/HCPCS: 71046; 99284

== ENCOUNTER 2018-09-15 21:13 | Emergency (ER) | payer OTHER ==
[2018-09-15] MEDS ORDERED: NA CHLORIDE 0.9% 1,000 ML ONE (22:41)
[2018-09-15 23:16] LABS: Absolute Lymphocytes (CBC) 1.6 K/uL (0.7-4.9); Basophils % 0.3 % (0-1.3); Eosinophils % 4.2 % (0-4.4); Hematocrit 40.2 % (36.0-45.0); Lymphocytes % 22.3 % (15.3-44.8); MPV 9.2 fL (7.6-11.3); Monocytes % 11.8 % (3.3-12.3)
[2018-09-15 23:31] LABS: Potassium 4.3 mmol/L (3.5-5.1)
--- NOTE | 2018-09-16 00:15 | ER ---
Nurse's Notes [facility] Name: Adwoa Espinosa Age: 88 yrs Sex: Female : 1930 Arrival Date: 09/15/2018 Time: 21:20 Bed 3 Private MD: Diagnosis: Altered mental status, unspecified;Dehydration;Cystitis Presentation: 09/15 21:20 Presenting complaint: EMS states: Staff at [facility] states pt more confused than la1 normal, not acting quite right, last seen normal was yesterday. Pt currently alert, oriented to name and place, but not situation or time. VAN negative. Transition of care: patient was not received from another setting of care. Onset of symptoms was September 15, 2018. Risk Assessment: Do you want to hurt yourself or someone else? Patient reports no desire to harm self or others. Initial Sepsis Screen: Does the patient meet any 2 criteria? No. Patient's initial sepsis screen is negative. Does the patient have a suspected source of infection? No. Patient's initial sepsis screen is negative. Care prior to arrival: None. 21:20 Method Of Arrival: EMS: [facility] la1 21:20 Acuity: XAVIER 2 la1 Triage Assessment: 09/16 01:45 General: Behavior is. ea Historical: - Allergies: 09/15 21:23 ACETAMINOPHEN; la1 21:23 Codeine; la1 21:23 Demerol; la1 21:23 Diltiazem; la1 21:23 Morphine; la1 21:23 Opioids-Meperidine Related; la1 21:23 PENICILLINS; la1 - PMHx: 21:23 Arthritis; Atrial Fib; Cirrhosis; Hypertension; la1 - Immunization history:: Adult Immunizations up to date. - Social history:: Smoking status: Patient/guardian denies using tobacco. - Ebola Screening: : No symptoms or risks identified at this time. Screenin:23 VAN Screening: Arm Drift: Patient shows no arm weakness. Patient is VAN negative. la1 21:25 Abuse screen: Denies threats or abuse. Nutritional screening: No deficits noted. la1 Tuberculosis screening: No symptoms or risk factors identified. Fall Risk Fall in past 12 months (25 points). Secondary diagnosis (15 points) No IV (0 pts). Ambulatory Aid- Crutches/Cane/Walker (15 pts). Gait- Weak (10 pts.). Mental Status- Overestimates/Forgets Limitations (15 pts.). Total Friedman Fall Scale indicates High Risk Score (45 or more points). Placed Close to Nursing Station. Assessment: 21:24 Neuro: Level of Consciousness is awake, alert, obeys commands, Oriented to person, la1 place, Aircraft Fueler are equal bilaterally Speech is normal, Facial symmetry appears normal. Cardiovascular: Capillary refill < 3 seconds Patient's skin is warm and dry. Respiratory: Airway is patent Respiratory effort is even, unlabored, Respiratory pattern is regular, symmetrical. GI: No signs and/or symptoms were reported involving the gastrointestinal system. : Pt incontinent of urine, in brief, changed and cleaned upon arrival. 22:10 General: Appears uncomfortable. Pain: Denies pain. Neuro: Level of Consciousness is ea awake, alert, obeys commands, Oriented to person, place, Speech is normal, Facial symmetry appears normal. Cardiovascular: Patient's skin is warm and dry. Respiratory: Airway is patent Respiratory effort is even, unlabored, Respiratory pattern is regular, symmetrical. GI: No signs and/or symptoms were reported involving the gastrointestinal system. Derm: Skin is fragile, Skin is dry, Skin is normal. 23:43 Reassessment: Patient and/or family updated on plan of care and expected duration. Pain ea level reassessed. Pt resting with eyes closed, respirations even and unlabored. Chest expansions even and symmetrical. 09/16 00:38 Reassessment: [facility] nurse notified of pt's discharge, nurse stated they have no ea transportation for pt at this time. 00:48 Reassessment: Patient and/or family updated on plan of care and expected duration. Pain ea level reassessed. Pt resting with eyes closed respirations even and unlabored. Chest expansions even and symmetrical. 01:42 Reassessment: Patient and/or family updated on plan of care and expected duration. Pain ea level reassessed. Pt alert and oriented to self and place. Pt's son at facility to take pt back to [facility]. Discharge instruction given to son. Pt taken via wheelchair , tolerating well. no s/s of pain or discomfort noted at this time. Pt assisted to private vehicle, tolerated well. Vital Signs: 09/15 21:23 BP 167 / 67; Pulse 85; Resp 16; Temp 99.0; Pulse Ox 98% on R/A; la1 22:45 BP 149 / 70; Pulse 69; Resp 18; Pulse Ox 98% on R/A; ea 23:15 BP 160 / 73; Pulse 70; Resp 18; Pulse Ox 99% ; ea 09/16 00:52 BP 137 / 58; Pulse 70; Resp 18; Pulse Ox 99% ; ea 01:20 BP 130 / 54; Pulse 68; Resp 18; Temp 97.8; Pulse Ox 99% on R/A; Pain 0/10; ea ED Course: 09/15 21:20 Patient arrived in ED. la1 21:21 Triage completed. la1 21:23 Uriel Moran MD is Attending Physician. gs 21:23 Arm band placed on left wrist. la1 21:25 Placed in gown. Bed in low position. Call light in reach. Pulse ox on. NIBP on. la1 22:21 Leydi Cummings, JERMAINE is Primary Nurse. ea 23:00 Inserted saline lock: 24 gauge in right hand, using aseptic technique. ea 23:45 CT completed. Patient tolerated procedure well. Patient moved to CT via stretcher. Patient moved back from CT. 23:46 CT Head Brain wo Cont In Process Unspecified. EDPA 09/16 00:50 No provider procedures requiring assistance completed. ea 01:40 IV discontinued, intact, bleeding controlled, No redness/swelling at site. Pressure ea dressing applied. Administered Medications: 09/15 23:00 Drug: NS 0.9% 1000 ml Route: IV; Rate: 1 bolus; Site: right hand; ea 09/16 01:38 Follow up: Response: No adverse reaction; IV Status: Completed infusion; IV Intake: ea 1000ml Intake: 01:38 IV: 1000ml; Total: 1000ml. ea Outcome: 00:14 Discharge ordered by . 01:44 Discharged to [facility], pt left ED via wheelchair with family ea 01:44 Condition: stable 01:44 Discharge instructions given to patient, family, Instructed on discharge instructions, follow up and referral plans. medication usage, Demonstrated understanding of instructions, follow-up care, medications, Prescriptions given X 1. 01:45 Patient left the ED. ea Signatures: Dispatcher [employer] [facility] Jeff Jeong Connor Billings RN RN Leydi Grant, RN RN Uriel Nichols MD MD gs
--- NOTE | 2018-09-16 00:15 | EDPHYS ---
Physician Documentation [facility] Name: Adwoa Espinosa Age: 88 yrs Sex: Female : 1930 Arrival Date: 09/15/2018 Time: 21:20 Bed 3 Private MD: ED Physician Uriel Moran HPI: 09/16 00:01 This 88 yrs old Female presents to ER via EMS with complaints of Altered gs Mental Status. 00:01 The patient presents with confusion. Onset: The symptoms/episode began/occurred gs yesterday, at 10:00. Possible causes: unknown. Associated signs and symptoms: Pertinent negatives: seizure, shortness of breath. Current symptoms: In the emergency department the patient's symptoms have resolved. The patient has experienced similar episodes in the past, a few times. The patient has not recently seen a physician. Historical: - Allergies: 09/15 21:23 ACETAMINOPHEN; la1 21:23 Codeine; la1 21:23 Demerol; la1 21:23 Diltiazem; la1 21:23 Morphine; la1 21:23 Opioids-Meperidine Related; la1 21:23 PENICILLINS; la1 - PMHx: 21:23 Arthritis; Atrial Fib; Cirrhosis; Hypertension; la1 - Immunization history:: Adult Immunizations up to date. - Social history:: Smoking status: Patient/guardian denies using tobacco. - Ebola Screening: : No symptoms or risks identified at this time. ROS: 09/16 00:01 All other systems are negative. gs Exam: 00:01 ENT: Nares patent. No nasal discharge, no septal abnormalities noted. Tympanic gs membranes are normal and external auditory canals are clear. Oropharynx with no redness, swelling, or masses, exudates, or evidence of obstruction, uvula midline. Mucous membranes moist. Cardiovascular: Regular rate and rhythm with a normal S1 and S2. No gallops, murmurs, or rubs. Normal PMI, no JVD. No pulse deficits. Respiratory: Lungs have equal breath sounds bilaterally, clear to auscultation and percussion. No rales, rhonchi or wheezes noted. No increased work of breathing, no retractions or nasal flaring. Abdomen/GI: Soft, non-tender, with normal bowel sounds. No distension or tympany. No guarding or rebound. No evidence of tenderness throughout. Back: No spinal tenderness. No costovertebral tenderness. Full range of motion. Skin: Warm, dry with normal turgor. Normal color with no rashes, no lesions, and no evidence of cellulitis. MS/ Extremity: Pulses equal, no cyanosis. Neurovascular intact. Full, normal range of motion. 00:01 Constitutional: The patient appears alert, awake. 00:01 Neuro: Orientation: is normal, Cranial nerves: grossly normal, Motor: no acute changes, moves all fours, Sensation: no obvious gross deficits. Vital Signs: 09/15 21:23 BP 167 / 67; Pulse 85; Resp 16; Temp 99.0; Pulse Ox 98% on R/A; la1 22:45 BP 149 / 70; Pulse 69; Resp 18; Pulse Ox 98% on R/A; ea 23:15 BP 160 / 73; Pulse 70; Resp 18; Pulse Ox 99% ; ea 09/16 00:52 BP 137 / 58; Pulse 70; Resp 18; Pulse Ox 99% ; ea 01:20 BP 130 / 54; Pulse 68; Resp 18; Temp 97.8; Pulse Ox 99% on R/A; Pain 0/10; ea MDM: 09/15 22:15 Patient medically screened. 09/15 22:19 Order name: CBC with Diff; Complete Time: 00:05 kdr 09/15 22:19 Order name: Basic Metabolic Panel; Complete Time: 00:05 kdr 09/15 22:19 Order name: Urine Microscopic Only [facility] 09/15 22:19 Order name: CT Head Brain wo Cont [facility] 09/16 00:21 Order name: Urine Dipstick--Ancillary (enter results) 09/16 00:46 Order name: Urine Culture [facility] 09/15 22:19 Order name: Urine Dipstick-Ancillary (obtain specimen); Complete Time: 00:18 kdr Administered Medications: 23:00 Drug: NS 0.9% 1000 ml Route: IV; Rate: 1 bolus; Site: right hand; ea 09/16 01:38 Follow up: Response: No adverse reaction; IV Status: Completed infusion; IV Intake: ea 1000ml Disposition: 09/16/18 00:14 Discharged to Home. Impression: Altered mental status, unspecified, Dehydration, Cystitis. - Condition is Stable. - Discharge Instructions: Dehydration, Adult, Urinary Tract Infection, Adult. - Prescriptions for Keflex 500 mg Oral Capsule - take 1 capsule by ORAL route every 12 hours for 7 days; 14 capsule. - Medication Reconciliation Form, Thank You Letter, Antibiotic Education, Prescription Opioid Use form. - Follow up: Private Physician; When: 2 - 3 days; Reason: Re-evaluation by your physician. Signatures: Dispatcher [employer] EDJarrett Arteaga MD MD kdr Attema, Lee, RN RN laLeydi Ledbetter RN RN ea MoranUriel MD MD gs Corrections: (The following items were deleted from the chart) 01:45 00:14 09/16/2018 00:14 Discharged to Home. Impression: Altered mental status, ea unspecified; Dehydration; Cystitis. Condition is Stable. Forms are Medication Reconciliation Form, Thank You Letter, Antibiotic Education, Prescription Opioid Use. Follow up: Private Physician; When: 2 - 3 days; Reason: Re-evaluation by your physician. gs
[2018-09-16 00:31] LABS: Urine Glucose NEGATIVE (NEG); Urine Specific Gravity 1.015 (1.005-1.030)
[2018-09-16 00:32] LABS: Urine Blood TRACE (NEG); Urine Protein TRACE (NEG)
[2018-09-16 00:41] LABS: Urine Bacteria 20-50 /HPF (<20); Urine Culture Reflex Order REFLEXED; Urine RBC <5 /HPF (NONE SEEN)
[2018-09-16 02:27] VITALS: TEMP 99
[2018-09-16 02:30] VITALS: O2SAT 99
[2018-09-16 02:31] VITALS: BP 137/58
--- NOTE | 2018-09-16 10:41 | RAD REPORT ---
EXAM DESCRIPTION: CT Head Without Intravenous Contrast CLINICAL HISTORY: The patient is 88 years old and is Female; DECLINING STATE TECHNIQUE: Axial computed tomography images of the head/brain without intravenous contrast. Sagitt al and coronal reformatted images were created and reviewed. This CT exam was performed using one o r more of the following dose reduction techniques: automated exposure control, adjustment of the mA and/or kV according to patient size, and/or use of iterative reconstruction technique. COMPARISON: No relevant prior studies available. FINDINGS: BRAIN: Diffuse cerebral atrophy is noted. There are nonspecific periventricular white ma tter changes, which are likely related to chronic small vessel disease. The díaz-white differentiatio n is maintained. There are no extra-axial fluid collections or acute hemorrhage. There is diffuse pro minence of the ventricles, which is likely related to central atrophy. VENTRICLES: Unremarkable. No ventriculomegaly. BONES/JOINTS: No acute fracture. SOFT TISSUES: Unremarkable. SINUSES: Complete opacification of the right sphenoid sinus with associated minimal central calc ification suggesting chronic sinus disease is noted. MASTOID AIR CELLS: Unremarkable as visualized. No mastoid effusion. IMPRESSION: 1. No acute intracranial findings visualized. 2. Nonspecific periventricular white matter changes, likely related to chronic small vessel disease . 3. Diffuse cerebral atrophy. Electronically signed by: Marnie Lora MD 09/15/2018 11:52 PM CDT Due to temporary technical issues with the PACS/Fluency reporting system, reports are being signed by the in house radiologist as a courtesy to ensure prompt reporting. The interpreting radiologist is f ully responsible for the content of the report.
== END 2018-09-16 01:45 | disposition home or self-care (01) ==
LOC: ER 21:13
DX: E86.0 Dehydration (principal); N30.90 Cystitis, unspecified without hematuria; R41.82 Altered mental status, unspecified; I48.91 Unspecified atrial fibrillation; I10 Essential (primary) hypertension; Z88.6 Allergy status to analgesic agent; Z88.5 Allergy status to narcotic agent; Z88.0 Allergy status to penicillin
CPT/HCPCS: 36415; 70450; 80048; 81003; 81015; 85025; 87086; 87088; 96360; 96361; 99284; J7030

== ENCOUNTER 2018-09-16 15:09 | Inpatient (IN) | payer OTHER ==
[2018-09-16] MEDS ORDERED: Levofloxacin500mg IV 500 MG/100 ML BAG IV ONE (16:34)
[2018-09-16] MEDS ORDERED: NA CHLORIDE 0.9% 1,000 ML ONE (16:34)
[2018-09-16 16:47] LABS: Protime INR 1.3
[2018-09-16 16:55] LABS: Potassium 3.8 mmol/L (3.5-5.1)
[2018-09-16 17:03] LABS: Albumin 3.1 g/dL (3.4-5.0); Bilirubin Direct 1.6 mg/dL (0-0.2); Bilirubin Total 2.2 mg/dL (0.2-1.0); Protein, Total 6.6 g/dL (6.4-8.2); Troponin (Emerg Dept Use Only) 0.13 ng/mL (0.0-0.045)
--- NOTE | 2018-09-16 17:07 | RAD REPORT ---
EXAM DESCRIPTION: RAD - Chest Single View - 09/16/2018 4:28 pm CLINICAL HISTORY: Sepsis COMPARISON: July 17 TECHNIQUE: AP portable chest image was obtained 1622 hours . FINDINGS: Lung volumes are low compared to prior imaging. Chronic interstitial lung disease is prese nt accentuated by shallow inspiration. No focal consolidation. No failure or volume overload. Heart and vasculature are normal. No measurable pleural effusion and no pneumothorax. No acute bony abnormality seen. No acute aortic findings suspected. IMPRESSION: Chronic interstitial lung disease accentuated by shallow inspiration.
--- NOTE | 2018-09-16 17:59 | ER ---
Nurse's Notes [facility] Name: Adwoa Espinosa Age: 88 yrs Sex: Female : 1930 Arrival Date: 09/16/2018 Time: 15:19 Bed 4 Private MD: Diagnosis: Hepatic Encephalopathy;Altered mental status, unspecified Presentation: 09/16 15:20 Presenting complaint: EMS states: pt daughter reports that the patient has had urinary sg incontinence but also urinary retention starting today, pt is unable to walk and is more confused per the pt family. Transition of care: patient was not received from another setting of care. Onset of symptoms was September 16, 2018. Risk Assessment: Do you want to hurt yourself or someone else? Patient reports no desire to harm self or others. Initial Sepsis Screen: Does the patient meet any 2 criteria? Altered Mental Status. No. Patient's initial sepsis screen is negative. Does the patient have a suspected source of infection? Yes: Dysuria/Frequency/Urgency/UTI. Care prior to arrival: Glucose check: 168. 15:20 Method Of Arrival: EMS: [facility] sg 15:20 Acuity: XAVIER 2 sg Triage Assessment: 19:52 General: Appears in no apparent distress. Behavior is quiet, tremors are WNL for pt. . ak1 Historical: - Allergies: 15:29 ACETAMINOPHEN; sg 15:29 Codeine; sg 15:29 Demerol; sg 15:29 Diltiazem; sg 15:29 Morphine; sg 15:29 Opioids-Meperidine Related; sg 15:29 PENICILLINS; sg - Home Meds: 15:29 aspirin 81 mg Oral chew 1 tab once daily [Active]; cetirizine 10 mg Oral tab 1 tab once sg daily [Active]; furosemide 40 mg Oral tab 1 tab 2 times per day [Active]; Generlac 10 gram/15 mL Oral soln [Active]; hydralazine 10 mg Oral tab 1 tab 2 times per day [Active]; omeprazole 20 mg Oral TbEC 20 mg daily [Active]; propranolol 20 mg Oral tab 1 tab 2 times per day [Active]; spironolactone 25 mg Oral tab 1 tab once daily [Active]; ursodiol 500 mg Oral tab daily [Active]; - PMHx: 15:29 Arthritis; Atrial Fib; Cirrhosis; Hypertension; sg - Immunization history:: Adult Immunizations up to date. - Social history:: Smoking status: Patient/guardian denies using tobacco. - Ebola Screening: : Patient negative for fever greater than or equal to 101.5 degrees Fahrenheit, and additional compatible Ebola Virus Disease symptoms Patient denies exposure to infectious person Patient denies travel to an Ebola-affected area in the 21 days before illness onset No symptoms or risks identified at this time. Screenin:15 Abuse screen: Denies threats or abuse. Denies injuries from another. Nutritional sg screening: No deficits noted. Tuberculosis screening: No symptoms or risk factors identified. Never had TB. Fall Risk None identified. Assessment: 15:30 Reassessment: pt daughter at bedside at this time. sg 16:12 Reassessment: xray at bedside at this time. sg 19:53 General: Appears in no apparent distress. Behavior is calm, quiet. Pain: Denies pain. ak1 Neuro: Level of Consciousness is awake, alert, confused, Oriented to person, Marketing Technology Specialist are equal bilaterally Moves all extremities. Speech is normal. Cardiovascular: No deficits noted. Respiratory: No deficits noted. GI: Abdomen is round NGT in place, Site clean. tube placement verified with XRay. : Hendrix in place to gravity drainage. EENT: No signs and/or symptoms were reported regarding the EENT system. Derm: No signs and/or symptoms reported regarding the dermatologic system. Musculoskeletal: No signs and/or symptoms reported regarding the musculoskeletal system. 20:30 Reassessment: unable to administer lactulose through Dobhoff tube Dr Flores notified bb new order received lactulose administered per rectum, pt tolerated well. Vital Signs: 15:23 BP 149 / 73; Pulse 74; Resp 19; Temp 98.6(R); Pulse Ox 97% on R/A; Weight 67.13 kg; sg Pain 0/10; 16:00 BP 164 / 76; Pulse 75; Resp 16; Pulse Ox 96% on R/A; sg 17:00 BP 144 / 71; Pulse 70; Resp 17 S; Pulse Ox 96% on R/A; sg 18:03 BP 165 / 79; Pulse 77; Resp 16; Pulse Ox 100% on R/A; sg 19:00 BP 138 / 75; Pulse 76; Resp 17 S; Temp 97.6; Pulse Ox 100% on R/A; sg 19:53 BP 157 / 67; Pulse 77; Resp 18 S; Pulse Ox 97% on R/A; ak1 20:08 BP 138 / 82; Pulse 77; Resp 18; Temp 97.6; Pulse Ox 97% on R/A; ak1 ED Course: 15:19 Patient arrived in ED. sg 15:20 Arm band placed on. sg 15:22 Jarrett New MD is Attending Physician. kdr 15:23 Triage completed. sg 15:28 EKG done, by technician submarine cable equipment. reviewed by Jarrett New MD. sm3 15:31 Humberto Coyne, JERMAINE is Primary Nurse. sg 16:15 First set of blood cultures drawn by me. jb1 16:29 Chest Single View XRAY In Process Unspecified. EDMS 16:30 Second set of blood cultures drawn by me. jb1 16:33 Initial lab(s) drawn, by me, sent to lab. Inserted saline lock: 22 gauge in right jb1 antecubital area, using aseptic technique. Blood collected. 17:50 Urine collected: Hendrix catheter specimen, clear, Amount Returned: 800mL. Hendrix cath sg inserted, using sterile technique, 16 Fr., by me, balloon inflated, to gravity drainage, urine specimen collected. returned clear yellow urine. Patient tolerated well. 17:56 Leslie Noonan MD is Hospitalizing Provider. kdr 18:55 NGT: inserted 10 Fr. via right nare. Placement verified by X-ray, Patient tolerated sg well. Dobhoff tube as ordered. 19:53 Patient has correct armband on for positive identification. Placed in gown. Bed in low ak1 position. Call light in reach. Side rails up X2. Adult w/ patient. cafeteria monitor on. Pulse ox on. NIBP on. 19:56 No provider procedures requiring assistance completed. Patient admitted, IV remains in ak1 place. Administered Medications: 17:30 Drug: NS 0.9% (30 ml/kg) 30 ml/kg Route: IV; Rate: bolus; Site: right antecubital; sg 20:13 Follow up: IV Status: Completed infusion; IV Intake: 1000ml ak1 17:30 Drug: LevaQUIN 500 mg Volume: 100 ml; Route: IVPB; Infused Over: 60 mins; Site: right sg antecubital; 20:13 Follow up: IV Status: Completed infusion ak1 19:33 Drug: Reglan 10 mg Route: IVP; Site: right antecubital; ak1 20:06 Follow up: Response: No adverse reaction ak1 20:58 Drug: Lactulose 30 grams {Note: administered per rectum verbal order Dr Flores.} bb Volume: 45 ml; Route: PO; 21:28 Follow up: verbal order to administer lactulose rectally. pt tolerated well ak1 Intake: 20:13 IV: 1000ml; Total: 1000ml. ak1 Output: 20:08 Urine: 700ml (Hendrix); Total: 700ml. ak1 Outcome: 17:57 Decision to Hospitalize by Provider. kdr 19:57 Admitted to Med/surg accompanied by tech, family with patient, via stretcher, room 401, ak1 with chart, Report called to Antonio 19:57 Condition: stable 19:57 Instructed on the need for admit. 21:27 Patient left the ED. ak1 Signatures: Dispatcher [employer] EDMS Jacobo Albright jb1 Humberto Coyne, RN JERMAINE sg Jarrett New MD MD kdr Ballard, Brenda, RN RN bb Krenek, Amber, RN RN ak1 Kim Isbell 3
--- NOTE | 2018-09-16 18:00 | EDPHYS ---
Physician Documentation [facility] Name: Adwoa Espinosa Age: 88 yrs Sex: Female : 1930 Arrival Date: 09/16/2018 Time: 15:19 Bed 4 Private MD: ED Physician Jarrett New HPI: 09/16 18:09 This 88 yrs old Female presents to ER via EMS with complaints of Urinary kdr Incontinence, Altered Mental Status. 18:09 The patient presents with confusion, decreased mental status, decreased responsiveness. kdr Onset: The symptoms/episode began/occurred gradually, today. Possible causes: sepsis, the patient has a known UTI history. Associated signs and symptoms: Pertinent positives: confusion. Current symptoms: In the emergency department the patient's symptoms are unchanged from the initial presentation. Patient's baseline: Neuro: alert but confused. The patient has experienced similar episodes in the past, multiple times. The patient has been recently seen by a physician: the patient's primary care provider. Historical: - Allergies: 15:29 ACETAMINOPHEN; sg 15:29 Codeine; sg 15:29 Demerol; sg 15:29 Diltiazem; sg 15:29 Morphine; sg 15:29 Opioids-Meperidine Related; sg 15:29 PENICILLINS; sg - Home Meds: 15:29 aspirin 81 mg Oral chew 1 tab once daily [Active]; cetirizine 10 mg Oral tab 1 tab once sg daily [Active]; furosemide 40 mg Oral tab 1 tab 2 times per day [Active]; Generlac 10 gram/15 mL Oral soln [Active]; hydralazine 10 mg Oral tab 1 tab 2 times per day [Active]; omeprazole 20 mg Oral TbEC 20 mg daily [Active]; propranolol 20 mg Oral tab 1 tab 2 times per day [Active]; spironolactone 25 mg Oral tab 1 tab once daily [Active]; ursodiol 500 mg Oral tab daily [Active]; - PMHx: 15:29 Arthritis; Atrial Fib; Cirrhosis; Hypertension; sg - Immunization history:: Adult Immunizations up to date. - Social history:: Smoking status: Patient/guardian denies using tobacco. - Ebola Screening: : Patient negative for fever greater than or equal to 101.5 degrees Fahrenheit, and additional compatible Ebola Virus Disease symptoms Patient denies exposure to infectious person Patient denies travel to an Ebola-affected area in the 21 days before illness onset No symptoms or risks identified at this time. ROS: 18:09 Constitutional: Unable to obtain kdr 18:09 Unable to obtain ROS due to altered mental status. Exam: 18:09 Constitutional: This is a well developed, poorly nourished patient who issomnolent but kdr in no acute distress. Head/Face: Normocephalic, atraumatic. Eyes: Pupils equal round and reactive to light, extra-ocular motions intact. Lids and lashes normal. Conjunctiva and sclera are non-icteric and not injected. Cornea within normal limits. Periorbital areas with no swelling, redness, or edema. Neck: Trachea midline, no thyromegaly or masses palpated, and no cervical lymphadenopathy. Supple, full range of motion without nuchal rigidity, or vertebral point tenderness. No Meningismus. Chest/axilla: Normal chest wall appearance and motion. Nontender with no deformity. No lesions are appreciated. Cardiovascular: Regular rate and rhythm with a normal S1 and S2. No gallops, murmurs, or rubs. Normal PMI, no JVD. No pulse deficits. Respiratory: Lungs have equal breath sounds bilaterally, clear to auscultation and percussion. No rales, rhonchi or wheezes noted. No increased work of breathing, no retractions or nasal flaring. Abdomen/GI: Soft, non-tender, with normal bowel sounds. No distension or tympany. No guarding or rebound. No evidence of tenderness throughout. Back: No spinal tenderness. No costovertebral tenderness. Full range of motion. Skin: Warm, dry with normal turgor. Normal color with no rashes, no lesions, and no evidence of cellulitis. MS/ Extremity: Pulses equal, no cyanosis. Neurovascular intact. Full, normal range of motion. Vital Signs: 15:23 BP 149 / 73; Pulse 74; Resp 19; Temp 98.6(R); Pulse Ox 97% on R/A; Weight 67.13 kg; sg Pain 0/10; 16:00 BP 164 / 76; Pulse 75; Resp 16; Pulse Ox 96% on R/A; sg 17:00 BP 144 / 71; Pulse 70; Resp 17 S; Pulse Ox 96% on R/A; sg 18:03 BP 165 / 79; Pulse 77; Resp 16; Pulse Ox 100% on R/A; sg 19:00 BP 138 / 75; Pulse 76; Resp 17 S; Temp 97.6; Pulse Ox 100% on R/A; sg 19:53 BP 157 / 67; Pulse 77; Resp 18 S; Pulse Ox 97% on R/A; ak1 20:08 BP 138 / 82; Pulse 77; Resp 18; Temp 97.6; Pulse Ox 97% on R/A; ak1 MDM: 17:57 Patient medically screened. kdr 18:09 Data reviewed: vital signs, nurses notes, lab test result(s). Counseling: I had a kdr detailed discussion with the patient and/or guardian regarding: the historical points, exam findings, and any diagnostic results supporting the discharge/admit diagnosis, lab results, the need for further work-up and treatment in the hospital. Physician consultation: A Saran CORONADO and will see patient in ED, shortly. Admission orders: after a detailed discussion of the patient's condition and case, the admit orders are written by me. 09/16 15:23 Order name: CBC with Diff [facility] 09/16 15:23 Order name: Chem 7; Complete Time: 17:21 [facility] 09/16 16:05 Order name: Blood Culture Adult (2) [facility] 09/16 16:05 Order name: Ckmb [facility] 09/16 16:05 Order name: CPK [facility] 09/16 16:05 Order name: Lactate [facility] 09/16 16:05 Order name: LFT's [facility] 09/16 16:05 Order name: Lipase [facility] 09/16 16:05 Order name: Procalcitonin [facility] 09/16 16:05 Order name: Protime (+inr) [facility] 09/16 16:05 Order name: Ptt, Activated; Complete Time: 17:21 [facility] 09/16 16:05 Order name: Troponin (emerg Dept Use Only); Complete Time: 17:21 [facility] 09/16 16:05 Order name: Urine Microscopic Only [facility] 09/16 16:07 Order name: Blood Culture [facility] 09/16 16:05 Order name: Chest Single View XRAY; Complete Time: 17:21 [facility] 09/16 16:07 Order name: CKMB Creatine Kinase MB; Complete Time: 17:21 [facility] 09/16 16:07 Order name: Creatine Phosphokinase; Complete Time: 17:21 [facility] 09/16 16:07 Order name: Lactate; Complete Time: 17:21 [facility] 09/16 16:07 Order name: Liver (Hepatic) Function; Complete Time: 17:21 [facility] 09/16 16:07 Order name: Lipase; Complete Time: 17:21 [facility] 09/16 16:07 Order name: Procalcitonin; Complete Time: 17:21 [facility] 09/16 16:07 Order name: Protime (+INR); Complete Time: 17:21 [facility] 09/16 16:18 Order name: AMMONIA; Complete Time: 17:21 [facility] 09/16 18:00 Order name: CXR XRAY [facility] 09/16 18:10 Order name: Basic Metabolic Panel [facility] 09/16 18:10 Order name: Basic Metabolic Panel [facility] 09/16 18:10 Order name: CBC with Automated Diff [facility] 09/16 18:10 Order name: CBC with Automated Diff [facility] 09/16 19:10 Order name: Urine Dipstick--Ancillary (enter results) [facility] 09/16 19:18 Order name: Urine Dipstick-Ancillary [facility] 09/16 15:23 Order name: Urine Dipstick-Ancillary (obtain specimen); Complete Time: 19:01 [facility] 09/16 16:05 Order name: Accucheck; Complete Time: 16:33 [facility] 09/16 16:05 Order name: Cardiac monitoring; Complete Time: 16:09 [facility] 09/16 16:05 Order name: EKG - Nurse/Tech; Complete Time: 16:09 [facility] 09/16 16:05 Order name: IV Saline Lock - Large Bore; Complete Time: 16:33 [facility] 09/16 16:05 Order name: Labs collected and sent; Complete Time: 16:33 [facility] 09/16 16:05 Order name: O2 Per Protocol; Complete Time: 16:09 [facility] 09/16 16:05 Order name: O2 Sat Monitoring; Complete Time: 16:09 [facility] 09/16 16:05 Order name: Hendrix; Complete Time: 17:55 [facility] 09/16 17:56 Order name: EKG Electrocardiogram; Complete Time: 17:57 [facility] 09/16 17:59 Order name: Misc. Order: Dobhoff tube placement with post placement CXR; Complete Time: kdr 19:09/16 18:10 Order name: NPO [facility] 09/16 20:01 Order name: DESI [facility] Administered Medications: 17:30 Drug: NS 0.9% (30 ml/kg) 30 ml/kg Route: IV; Rate: bolus; Site: right antecubital; sg 20:13 Follow up: IV Status: Completed infusion; IV Intake: 1000ml ak1 17:30 Drug: LevaQUIN 500 mg Volume: 100 ml; Route: IVPB; Infused Over: 60 mins; Site: right sg antecubital; 20:13 Follow up: IV Status: Completed infusion ak1 19:33 Drug: Reglan 10 mg Route: IVP; Site: right antecubital; ak1 20:06 Follow up: Response: No adverse reaction ak1 20:58 Drug: Lactulose 30 grams {Note: administered per rectum verbal order Dr Flores.} bb Volume: 45 ml; Route: PO; 21:28 Follow up: verbal order to administer lactulose rectally. pt tolerated well ak1 Disposition: 09/16/18 17:57 Hospitalization ordered by Leslie Noonan for Inpatient Admission. Preliminary diagnosis are Hepatic Encephalopathy, Altered mental status, unspecified. - Bed requested for Telemetry/MedSurg (Inpatient). - Status is Inpatient Admission. ak1 - Condition is Fair. - Problem is an acute exacerbation. - Symptoms are unchanged. UTI on Admission? Yes Signatures: Dispatcher [facility] Sandra Perez RN Humberto Verduzco RN Jarrett Ponce MD MD kdr Ballard, Brenda, RN RN bb Krenek, Amber, RN RN ak1 Corrections: (The following items were deleted from the chart) 19:19 17:57 Hospitalization Ordered by A Saran CORONADO for Inpatient Admission. Preliminary mw diagnosis is Hepatic Encephalopathy; Altered mental status, unspecified. Bed requested for Telemetry/MedSurg (Inpatient). Status is Inpatient Admission. Condition is Fair. Problem is an acute exacerbation. Symptoms are unchanged. UTI on Admission? Yes. kdr 21:27 19:19 09/16/2018 17:57 Hospitalization Ordered by A Saran CORONADO for Inpatient Admission. ak1 Preliminary diagnosis is Hepatic Encephalopathy; Altered mental status, unspecified. Bed requested for Telemetry/MedSurg (Inpatient). Status is Inpatient Admission. Condition is Fair. Problem is an acute exacerbation. Symptoms are unchanged. UTI on Admission? Yes. mw
[2018-09-16] MEDS: LACTULOSE 20 GM/30 ML UCUP PO SCH ×2 (19:00→21:00)
[2018-09-16 19:17] LABS: Urine Blood TRACE (NEG); Urine Glucose NEGATIVE (NEG); Urine Protein TRACE (NEG); Urine Specific Gravity 1.015 (1.005-1.030)
[2018-09-16 19:27] LABS: Urine Bacteria 20-50 /HPF (<20); Urine Culture Reflex Order REFLEXED; Urine RBC NONE SEEN /HPF (NONE SEEN)
[2018-09-16] MEDS ORDERED: LACTULOSE 20 GM/30 ML UCUP ONE ×2 (19:46→21:05)
[2018-09-16] MEDS ORDERED: METOCLOPRAMIDE 10 MG/2mL INJ ONE (19:46)
--- NOTE | 2018-09-16 19:58 | RAD REPORT ---
EXAM DESCRIPTION: RAD - Chest Single View - 09/16/2018 6:58 pm CLINICAL HISTORY: Feeding tube placement COMPARISON: Portable chest September 16 TECHNIQUE: AP portable chest image was obtained 1856 hours . FINDINGS: Feeding tube has been placed. Tube is curled in the stomach. Due to the curled positioning , tip of the feeding tube is at the GE junction. There is an acute bend or kink in the tubing that wi ll likely will restrict or limit flow through the tube. Heart and vasculature are normal. No measurab le pleural effusion and no pneumothorax. No acute bony abnormality seen. No acute aortic findings zeina pected. IMPRESSION: Feeding tube is curled in the stomach with the tip at the GE junction. An acute bend or kink is present in the tubing near the tip likely restricting or limiting flow.
[2018-09-16 20:33] LABS: Absolute Lymphocytes (CBC) 1.4 K/uL (0.7-4.9); Basophils % 0.3 % (0-1.3); Eosinophils % 2.7 % (0-4.4); Hematocrit 41.4 % (36.0-45.0); Lymphocytes % 18.9 % (15.3-44.8); MPV 9.1 fL (7.6-11.3); Monocytes % 10.2 % (3.3-12.3); RBC Red Blood Cell Count 4.49 M/uL (3.86-4.86)
--- NOTE | 2018-09-16 22:05 | HP ---
Date of Admission: 09/16/2018 Chief Complaint: Altered mental status. History Of Present Illness: This is an 88-year-old very pleasant female patient living at [facility], has history of biliary cirrhosis, takes her medications regularly, who was brought in last night to the emergency room via ambulance with altered mental status. The patient's family started to notice slight problem with confusion over the weekend and yesterday her condition deteriorated, so ambulance was called, she was brought into ER, and as the patient's daughter tells me today that ER physician last night evaluated her and discharge her to go home with Keflex for urinary tract infection. Today, she was brought back to emergency room because after she was discharged from the ER, her condition did not improve, but continued to deteriorate and she was brought back to ER and this time, she was evaluated by another ER physician and I was contacted requesting admission to hospital. I saw her in the emergency room. The patient's daughter was with her at bedside. The patient has significant altered mental status. She is lying in bed, shaking her head. She has essential tremor and she is constantly shaking her head, lying in bed, not communicating nor answering any questions, not in any distress. Medications: List reviewed. Review of Systems: WEB METHODS DEVELOPER: As mentioned above. All other systems, unable to obtain any details because of the patient's altered mental status. Allergies: PENICILLIN, CODEINE, MEPERIDINE, TYLENOL, DILTIAZEM. Social History: Negative for smoking or alcohol use. Family History: Not pertinent. Past Surgical History: Hysterectomy, tonsillectomy, pelvis fracture. Past Medical History: Significant for biliary cirrhosis, thrombocytopenia secondary to cirrhosis, hypertension, osteoarthritis at multiple sites, hyperlipidemia, allergic rhinitis, type 2 diabetes mellitus, osteopenia, GERD, DVT of leg, asthma. Physical Examination: Vital Signs: Weight 67.13 kg, blood pressure 149/73, pulse 74, respiratory rate 19, temperature 98.6. General: The patient lying in bed, not in any distress, not answering any questions. Family at bedside. HEENT: Head atraumatic, normocephalic. Conjunctivae nonerythematous. Sclerae white. Mouth: No thrush or edema noted. Ears/Nose: No mass, lesion, discharge noted. Neck: Supple. No JVD, lymph nodes, bruit, thyromegaly noted. Lungs: Bilateral good equal air entry. Clear to auscultation. No rhonchi. No rales. Heart: Normal heart sounds. No murmur or gallop. Abdomen: Soft. Bowel sounds normal. No guarding, rigidity, tenderness, mass, hepatosplenomegaly, distention, or bruit noted. Extremities: No leg edema. No calf tenderness. Skin: No rash, ulcer, cellulitis. Lymphatics: No lymph node enlargement in neck, supraclavicular, infraclavicular region. Neuro: No focal neurological deficit. Chest: Unremarkable. External Genitalia: Deferred. Rectal: Deferred. Laboratory Data: Today, sodium 140, potassium 3.8, chloride 105, bicarb 26, BUN 22, creatinine 1.42, glucose 163, total bilirubin 2.2, SGOT 39, SGPT 34, alkaline phosphatase 154, ammonia level 129, procalcitonin 0.07. INR today 1.30. Urinalysis today shows 2+ esterase, more than 50 WBC, bacteria 20-50. Chest x-ray shows chronic interstitial lung changes from today. I have reviewed her ER visit record from last night while she came in and her white count was 7.2, hemoglobin 13.5, platelets 170. Chemistry had shown sodium 134, potassium 4.3, chloride 100, bicarb 25, BUN 21, creatinine 1.63, glucose 165. There was no liver function test or ammonia level done last night. Urinalysis from last night shows 1+ esterase, WBC more than 50, bacteria 20-50. CAT scan of the brain, no acute intracranial changes, done last night. Impression: 1. Hepatic encephalopathy. 2. Urinary tract infection. 3. Encephalopathy, toxic. 4. Biliary cirrhosis. 5. Volume depletion. 6. Type 2 diabetes mellitus. 7. Asthma, mild, intermittent. 8. Hypertension. 9. Gastroesophageal reflux disease. Plan: We will admit the patient to hospital for further evaluation and management of this problem. The patient is appropriate for inpatient and is expected to spend 2 midnights in hospital. Fall precautions will be ordered. Dobhoff tube was placed in the emergency room, but it was a small caliber, so ER physician called me while ago and we will replace that with NG tube, so lactulose can be given with NG tube. We will give 30 g every 4 hours. Repeat blood work tomorrow. IV antibiotics will be given. Follow up on urine culture that was collected last night and depending on the results, we will decide about culture specific antibiotic. We will give IV Pepcid. Monitor electrolyte and renal function. I did discuss advanced directive with the patient's family member, that is the patient's daughter at bedside, and DNR order will be written in the chart per the patient's decision. PAGE/CORTES Voice ID: [id number] [facility] HOSPITALNadiya
[2018-09-16] MEDS: D5 0.45 NS 1,000 ML IV SCH (22:22)
[2018-09-17] MEDS: LACTULOSE 20 GM/30 ML UCUP PO SCH ×6 (01:07→21:32)
[2018-09-17 04:48] LABS: Potassium 3.4 mmol/L (3.5-5.1)
[2018-09-17 04:50] LABS: Absolute Lymphocytes (CBC) 1.4 K/uL (0.7-4.9); Basophils % 0.1 % (0-1.3); Eosinophils % 2.7 % (0-4.4); Hematocrit 38.7 % (36.0-45.0); Lymphocytes % 17.4 % (15.3-44.8); MPV 9.3 fL (7.6-11.3); Monocytes % 13.3 % (3.3-12.3)
[2018-09-17] MEDS: D5 0.45 NS 1,000 ML IV SCH ×2 (05:00→12:22)
--- NOTE | 2018-09-17 07:33 | EKG ---
Test Date: 2018-09-16 Test Time: 15:24:30 Booster Pump Oiler: BEATRIZ/S MEASUREMENT RESULTS: Intervals: Rate: 74 [place]: 156 QRSD: 130 QT: 448 QTc: 497 [place]: P: 96 [place]: 156 QRS: 54 T: 194 INTERPRETIVE STATEMENTS: Normal sinus rhythm Left bundle branch block Abnormal ECG Compared to ECG 02/20/2018 18:38:43 No significant changes Electronically Signed On 09-17-18 07:32:23 CDT by Jaspreet Coy
[2018-09-17] MEDS: CEFTRIAXONE/SWI 1gm 1 GM/10 ML SYR IV SCH ×2 (12:21→21:31)
--- NOTE | 2018-09-17 20:47 | PN ---
Date of Progress Note: 09/17/2018 Subjective: The patient was seen this morning for followup. No new complaints, problems reported by the patient's family member. There is the patient's daughter who was at bedside. The patient's men herbert status has improved. This morning she was more awake and alert compared to last night. Objective: Vital Signs: Reviewed. HEENT: Examination unremarkable. Lungs: Clear to auscultation. Heart: Sounds normal. Abdomen: Soft. Bowel sounds normal. No guarding, rigidity, tenderness, or distention. Extremities: No leg edema. Laboratory Data: Labs reviewed. Impression: 1.Hepatic encephalopathy. 2.Urinary tract infection. 3.Toxic encephalopathy. 4.Biliary cirrhosis. Plan: Continue current medications, lactulose will be continued. Continue antibiotics ceftriaxone. Follow up on urine culture results. Physical Therapy to help ambulate the patient. We will repeat blood work tomorrow. I will see her tomorrow for followup. The patient's mental status improved tod ay after I saw her and we were able to remove Dobbhoff tube as she passed a bedside swallow test and diet was ordered for her. PAGE/MODL Voice ID: [id number] Report ID: [id number]
[2018-09-17] MEDS: Rifaximin 550 MG Tab PO SCH (21:30)
[2018-09-17] MEDS: URSODIOL 500 MG TAB PO SCH (21:31)
[2018-09-18] MEDS: D5 0.45 NS 1,000 ML IV SCH ×2 (00:15→20:59)
[2018-09-18] MEDS: LACTULOSE 20 GM/30 ML UCUP PO SCH ×6 (00:15→21:00)
[2018-09-18] MEDS: PANTOPRAZOLE 40MG TABLET PO SCH (05:57)
[2018-09-18] MEDS: CEFTRIAXONE/SWI 1gm 1 GM/10 ML SYR IV SCH ×2 (08:29→20:59)
[2018-09-18] MEDS: Rifaximin 550 MG Tab PO SCH ×2 (08:32→21:00)
[2018-09-18] MEDS: URSODIOL 500 MG TAB PO SCH ×2 (08:32→21:02)
[2018-09-18 08:34] LABS: Albumin 2.3 g/dL (3.4-5.0); Bilirubin Total 1.5 mg/dL (0.2-1.0); Protein, Total 5.2 g/dL (6.4-8.2)
[2018-09-18] MEDS ORDERED: POTASSIUM CL SA 10 MEQ TAB PO ONE (21:20)
--- NOTE | 2018-09-18 23:00 | PN ---
Date of Progress Note: 09/18/2018 Subjective: The patient was seen this morning for followup. She was lying in bed, not in any distre ss. She was much more awake, alert, communicating well this morning. Denied any new complaints. No nausea, vomiting. No abdominal pain. No shortness of breath, chest pain. Objective: Vital signs: Reviewed. HEENT: Examination unremarkable. Lungs: Clear to auscultation. Heart: Sounds normal. Abdomen: Soft. Bowel sounds normal. No guarding, rigidity, tenderness, or distention. Extremities: No leg edema. Impression: 1.Hepatic encephalopathy. 2.Urinary tract infection. 3.Biliary cirrhosis. Plan: We will go ahead and continue current antibiotic. Her urine specimen that was collected prior to this admission has remained negative. We will continue current empiric antibiotics. Physical Th erapy to be consulted to help ambulate the patient. She is tolerating diet very well and I will see her tomorrow for followup, possible discharge to go back to her assisted care facility over the wee[place] nd depending on her condition. PAGE/MODL Voice ID: [id number] Report ID: [id number]
[2018-09-19] MEDS: LACTULOSE 20 GM/30 ML UCUP PO SCH ×6 (00:20→20:48)
[2018-09-19] MEDS: ONDANSETRON 4 MG/2 ML VIAL IV PRN (02:13)
[2018-09-19] MEDS: D5 0.45 NS 1,000 ML IV SCH (04:00)
[2018-09-19] MEDS: PANTOPRAZOLE 40MG TABLET PO SCH (06:00)
[2018-09-19] MEDS: CEFTRIAXONE/SWI 1gm 1 GM/10 ML SYR IV SCH ×2 (08:17→20:49)
[2018-09-19] MEDS: Rifaximin 550 MG Tab PO SCH (08:17)
[2018-09-19] MEDS: URSODIOL 500 MG TAB PO SCH ×3 (08:19→20:48)
--- NOTE | 2018-09-19 12:04 | PN ---
Date of Progress Note: 09/19/2018 Subjective: The patient was seen this morning for followup. She was lying in bed, not in any distre ss. No new complaints or problems reported by her. Objective: Vital Signs: Reviewed. HEENT: Examination unremarkable. Lungs: Clear to auscultation. No rhonchi. No rales. Heart: Sounds normal. Abdomen: Soft. Bowel sounds normal. No guarding, rigidity, tenderness, or distention. Extremities: No leg edema. Laboratory Data: This morning labs pending. We will follow up on the results. Impression: 1.Hepatic encephalopathy. 2.Hypokalemia. 3.Urinary tract infection. 4.Biliary cirrhosis. Plan: We will go ahead and continue current empiric antibiotics. So far urine culture has not grown any bacteria, which was collected on 09/15/2018. Blood culture remains negative. We will go ahead and follow up on today's blood work results. Replace electrolyte per protocol if it becomes necessar y and physical therapy to help ambulate the patient. We will have nursing staff call [facility] to find out if the patient can return back to the facility or not considering at this point s he requires assistance with all the ADLs. If she cannot return back with her current condition, then we may have to go to skilled facility for a while. PAGE/MODL Voice ID: [id number] Report ID: [id number]
[2018-09-19 12:14] LABS: Magnesium 2.1 mg/dL (1.8-2.4); Potassium 3.8 mmol/L (3.5-5.1)
[2018-09-19] MEDS ORDERED: POTASSIUM 25 MEQ EFFERV TAB PO ONE (12:21)
[2018-09-19] MEDS: SPIRONOLACTONE 25 MG TABLET PO SCH (13:38)
[2018-09-19] MEDS: PROPRANOLOL HCL 10 MG TAB PO SCH (20:47)
[2018-09-19] MEDS: HYDRALAZINE HCL 10 MG TABLET PO SCH (20:48)
[2018-09-20] MEDS: LACTULOSE 20 GM/30 ML UCUP PO SCH ×6 (00:27→21:46)
[2018-09-20] MEDS: PANTOPRAZOLE 40MG TABLET PO SCH (05:28)
[2018-09-20] MEDS: CEFTRIAXONE/SWI 1gm 1 GM/10 ML SYR IV SCH ×2 (08:20→21:46)
[2018-09-20] MEDS: SPIRONOLACTONE 25 MG TABLET PO SCH (08:21)
[2018-09-20] MEDS: HYDRALAZINE HCL 10 MG TABLET PO SCH ×2 (08:21→21:46)
[2018-09-20] MEDS: PROPRANOLOL HCL 10 MG TAB PO SCH ×2 (08:21→21:45)
[2018-09-20] MEDS: URSODIOL 500 MG TAB PO SCH ×2 (11:38→21:45)
--- NOTE | 2018-09-20 12:46 | PN ---
Date of Progress Note: 09/20/2018 Subjective: The patient was seen this morning for followup. No new complaints or problems reported by her. She was lying in bed, not in distress. Objective: Vital Signs: Reviewed. HEENT: Examination unremarkable. Lungs: Clear to auscultation. Heart: Sounds normal. Abdomen: Soft. Bowel sounds normal. No guarding, rigidity, tenderness, or distention. Extremities: No leg edema. Laboratory Data: Sodium 140, potassium 4, chloride 111, bicarb 22, BUN 10, creatinine 1.04, glucose 126. Impression: 1.Urinary tract infection. 2.Hepatic encephalopathy. 3.Biliary cirrhosis. 4.Hypokalemia. Plan: We will go ahead and continue current medications, antibiotics. Continue current lactulose. Physical Therapy to continue to work with the patient and overall the patient's altered mental status has improved. She is now back to her baseline as far as mental status is concerned. She has signif icant generalized weakness and debility and she will need to go to correction facility before sh e can return back to assisted care facility and Social Service consultation is in place to assist the patient with that. PAGE/MODL Voice ID: [id number] Report ID: [id number]
[2018-09-21] MEDS: LACTULOSE 20 GM/30 ML UCUP PO SCH ×5 (00:28→21:20)
[2018-09-21] MEDS: PANTOPRAZOLE 40MG TABLET PO SCH (05:38)
[2018-09-21] MEDS: VITAMIN B COMPLEX 1 CAP PO SCH (08:33)
[2018-09-21] MEDS: PROPRANOLOL HCL 10 MG TAB PO SCH ×2 (08:33→21:19)
[2018-09-21] MEDS: CETIRIZINE HCL 5 MG TABLET PO SCH (08:33)
[2018-09-21] MEDS: MULTIVITAMIN TAB PO SCH ×2 (08:33→21:20)
[2018-09-21] MEDS: URSODIOL 500 MG TAB PO SCH ×2 (08:33→21:19)
[2018-09-21] MEDS: FUROSEMIDE 40 MG TABLET PO SCH ×2 (08:33→17:06)
[2018-09-21] MEDS: HYDRALAZINE HCL 10 MG TABLET PO SCH ×2 (08:33→21:20)
[2018-09-21] MEDS: ASPIRIN EC 81 MG TAB PO SCH (08:33)
[2018-09-21] MEDS: CEFTRIAXONE/SWI 1gm 1 GM/10 ML SYR IV SCH ×2 (08:33→21:21)
[2018-09-21] MEDS: SPIRONOLACTONE 25 MG TABLET PO SCH (08:33)
[2018-09-21] MEDS: FOLBIC 1 TAB PO SCH (08:34)
--- NOTE | 2018-09-21 11:53 | PN ---
Date of Progress Note: 09/21/2018 Subjective: The patient was seen this morning for followup. No new complaints or problems reported by the patient. She was sleeping, lying in bed, not in distress. Objective: Vital Signs: Reviewed. HEENT: Examination unremarkable. Lungs: Clear to auscultation. Heart: Sounds normal. Abdomen: Soft. Bowel sounds normal. No guarding, rigidity, tenderness, or distention. Extremities: No leg edema. Laboratory Data: There were no new labs today. Impression: 1.Hepatic encephalopathy, improved. 2.Urinary tract infection. 3.Biliary cirrhosis. 4.Volume depletion, resolved. Plan: We will continue current medication. Physical therapy to continue to work with the patient an d have social insurance analyst assist the patient with intermediate facility placement and possible discharg e to go to such facility as soon as arrangements gets completed. This patient is medically stable fo r discharge. I did talk to patient's son in detail this morning who was at bedside. PAGE/MODL Voice ID: [id number] Report ID: [id number]
[2018-09-21] MEDS: ENSURE ENLIVE 237 ML CAN PO SCH (21:00)
[2018-09-22 04:29] LABS: Absolute Lymphocytes (CBC) 1.7 K/uL (0.7-4.9); Basophils % 0.5 % (0-1.3); Eosinophils % 4.4 % (0-4.4); Hematocrit 35.5 % (36.0-45.0); Lymphocytes % 23.8 % (15.3-44.8); MPV 9.6 fL (7.6-11.3); Monocytes % 12.2 % (3.3-12.3); RBC Red Blood Cell Count 3.84 M/uL (3.86-4.86)
[2018-09-22 04:48] LABS: Albumin 2.2 g/dL (3.4-5.0); Bilirubin Total 1.3 mg/dL (0.2-1.0); Potassium 3.9 mmol/L (3.5-5.1)
[2018-09-22] MEDS: FUROSEMIDE 40 MG TABLET PO SCH ×2 (06:20→16:37)
[2018-09-22] MEDS: PANTOPRAZOLE 40MG TABLET PO SCH (06:20)
[2018-09-22] MEDS ORDERED: POTASSIUM CL SA 10 MEQ TAB PO ONE (09:00)
[2018-09-22] MEDS: SPIRONOLACTONE 25 MG TABLET PO SCH (09:30)
[2018-09-22] MEDS: FOLBIC 1 TAB PO SCH (09:30)
[2018-09-22] MEDS: HYDRALAZINE HCL 10 MG TABLET PO SCH ×2 (09:30→22:09)
[2018-09-22] MEDS: URSODIOL 500 MG TAB PO SCH ×2 (09:30→22:09)
[2018-09-22] MEDS: PROPRANOLOL HCL 10 MG TAB PO SCH ×2 (09:30→22:09)
[2018-09-22] MEDS: CETIRIZINE HCL 5 MG TABLET PO SCH (09:30)
[2018-09-22] MEDS: LACTULOSE 20 GM/30 ML UCUP PO SCH ×4 (09:30→22:08)
[2018-09-22] MEDS: ASPIRIN EC 81 MG TAB PO SCH (09:30)
[2018-09-22] MEDS: VITAMIN B COMPLEX 1 CAP PO SCH (09:30)
[2018-09-22] MEDS: MULTIVITAMIN TAB PO SCH ×2 (09:30→22:09)
[2018-09-22] MEDS: ENSURE ENLIVE 237 ML CAN PO SCH ×2 (09:30→21:00)
[2018-09-22] MEDS: CEFTRIAXONE/SWI 1gm 1 GM/10 ML SYR IV SCH ×2 (09:30→22:14)
--- NOTE | 2018-09-23 01:10 | PN ---
Date of Progress Note: 09/22/2018 Subjective: The patient was seen this morning for followup. She was lying in bed, not in distress. No new complaints or problems reported. No abdominal pain, nausea, or vomiting. Objective: Vital Signs: Reviewed. HEENT: Unremarkable. Lungs: Clear to auscultation. Heart: Sounds normal. Abdomen: Soft. Bowel sounds normal. No guarding, rigidity, tenderness, or distention. Extremities: No leg edema. Laboratory Data: White count 7.2, hemoglobin 11.8, platelets 122. Sodium 142, potassium 3.9, chlori de 109, bicarb 26, BUN 16, creatinine 1.28, glucose 156. Ammonia level 51. Impression: 1.Urinary tract infection. 2.Hepatic encephalopathy. 3.Anemia, unspecified. 4.Thrombocytopenia. 5.Biliary cirrhosis. 6.Generalized weakness. 7.Debility. Plan: We will continue current medication, antibiotic. Continue current lactulose, which she is jose cruz ing 4 times a day as of yesterday and physical therapy to continue to work with the patient. Social Service is working with the patient's insurance company to try to get approval for the patient to go to long-term facility of choice and once arrangements gets completed, we will be able to discharge her. PAGE/MODL Voice ID: [id number] Report ID: [id number]
[2018-09-23] MEDS: FUROSEMIDE 40 MG TABLET PO SCH ×2 (06:25→17:19)
[2018-09-23] MEDS: PANTOPRAZOLE 40MG TABLET PO SCH (06:27)
[2018-09-23] MEDS: SPIRONOLACTONE 25 MG TABLET PO SCH (10:12)
[2018-09-23] MEDS: ASPIRIN EC 81 MG TAB PO SCH (10:15)
[2018-09-23] MEDS: MULTIVITAMIN TAB PO SCH ×2 (10:15→20:41)
[2018-09-23] MEDS: PROPRANOLOL HCL 10 MG TAB PO SCH ×2 (10:15→20:41)
[2018-09-23] MEDS: VITAMIN B COMPLEX 1 CAP PO SCH (10:15)
[2018-09-23] MEDS: CETIRIZINE HCL 5 MG TABLET PO SCH (10:15)
[2018-09-23] MEDS: HYDRALAZINE HCL 10 MG TABLET PO SCH ×2 (10:16→20:41)
[2018-09-23] MEDS: FOLBIC 1 TAB PO SCH (10:16)
[2018-09-23] MEDS: URSODIOL 500 MG TAB PO SCH ×2 (10:16→20:44)
[2018-09-23] MEDS: CEFTRIAXONE/SWI 1gm 1 GM/10 ML SYR IV SCH ×2 (10:16→20:42)
[2018-09-23] MEDS: LACTULOSE 20 GM/30 ML UCUP PO SCH ×4 (10:17→20:40)
[2018-09-23] MEDS: ENSURE ENLIVE 237 ML CAN PO SCH ×2 (10:17→20:55)
--- NOTE | 2018-09-24 00:12 | PN ---
Date of Progress Note: 09/23/2018 Subjective: Patient was seen this morning for followup. She was lying in bed, not in any distress, sleeping, easily arousable. Denies any new complaints. Objective: Vital Signs: Reviewed. HEENT Examination: Unremarkable. Lungs: Clear to auscultation. Heart: Sounds normal. Abdomen: Soft. Bowel sounds normal. No guarding, rigidity, tenderness, or distention. Extremities: No leg edema. Impression: 1.Urinary tract infection. 2.Hepatic encephalopathy. 3.Debility. 4.Generalized weakness. 5.Biliary cirrhosis. Plan: We will continue current medication, lactulose, antibiotic, physical therapy, and I will see h er tomorrow for followup. Project Manager trying to get approval from insurance company for [facility] facility. The patient is medically stable for discharge. PAGE/MODL Voice ID: [id number] Report ID: [id number]
[2018-09-24] MEDS: FUROSEMIDE 40 MG TABLET PO SCH ×2 (06:45→17:18)
[2018-09-24] MEDS: PANTOPRAZOLE 40MG TABLET PO SCH (06:45)
[2018-09-24] MEDS: ENSURE ENLIVE 237 ML CAN PO SCH ×2 (09:15→21:38)
[2018-09-24] MEDS: CETIRIZINE HCL 5 MG TABLET PO SCH (09:16)
[2018-09-24] MEDS: HYDRALAZINE HCL 10 MG TABLET PO SCH ×2 (09:16→21:37)
[2018-09-24] MEDS: LACTULOSE 20 GM/30 ML UCUP PO SCH ×4 (09:16→21:38)
[2018-09-24] MEDS: VITAMIN B COMPLEX 1 CAP PO SCH (09:17)
[2018-09-24] MEDS: SPIRONOLACTONE 25 MG TABLET PO SCH (09:17)
[2018-09-24] MEDS: MULTIVITAMIN TAB PO SCH ×2 (09:17→21:37)
[2018-09-24] MEDS: ASPIRIN EC 81 MG TAB PO SCH (09:17)
[2018-09-24] MEDS: PROPRANOLOL HCL 10 MG TAB PO SCH ×2 (09:17→21:37)
[2018-09-24] MEDS: URSODIOL 500 MG TAB PO SCH ×2 (09:18→21:37)
[2018-09-24] MEDS: FOLBIC 1 TAB PO SCH (09:18)
[2018-09-24] MEDS: CEFTRIAXONE/SWI 1gm 1 GM/10 ML SYR IV SCH ×2 (13:53→21:37)
[2018-09-24] MEDS: ONDANSETRON 4 MG/2 ML VIAL IV PRN (16:08)
--- NOTE | 2018-09-24 23:56 | PN ---
Date of Progress Note: 09/24/2018 Subjective: The patient was seen this morning for followup. No new complaints or problems reported by the patient, lying in bed, not in distress. Objective: Vital Signs: Reviewed. HEENT: Unremarkable. Lungs: Clear to auscultation. Heart: Sounds normal. Abdomen: Soft. Bowel sounds normal. No guarding, rigidity, tenderness, distention. Extremities: No leg edema. Impression: 1.Urinary tract infection. 2.Hepatic encephalopathy. 3.Biliary cirrhosis. 4.Generalized weakness. 5.Debility. Plan: We will continue current medication, antibiotic, lactulose, physical therapy and Social Servic e is trying to get approval from insurance company for [facility] facility placement. The patie nt is medically stable for discharge. PAGE/MODL Voice ID: [id number] Report ID: [id number]
[2018-09-25] MEDS: FUROSEMIDE 40 MG TABLET PO SCH ×2 (05:04→17:00)
[2018-09-25] MEDS: PANTOPRAZOLE 40MG TABLET PO SCH (05:04)
[2018-09-25 05:09] VITALS: BMI 24.3
[2018-09-25 08:52] LABS: Absolute Lymphocytes (CBC) 1.2 K/uL (0.7-4.9); Basophils % 0.3 % (0-1.3); Eosinophils % 4.3 % (0-4.4); Lymphocytes % 18.6 % (15.3-44.8); MPV 9.4 fL (7.6-11.3); Monocytes % 10.4 % (3.3-12.3); RBC Red Blood Cell Count 3.77 M/uL (3.86-4.86)
--- NOTE | 2018-09-25 08:54 | RAD REPORT ---
EXAM DESCRIPTION: Eugenie Single View09/25/2018 8:45 am CLINICAL HISTORY: Shortness of breath COMPARISON: September 16, 2018 FINDINGS: The lungs appear clear of acute infiltrate. The heart is normal size IMPRESSION: No acute abnormalities displayed
[2018-09-25] MEDS: ENSURE ENLIVE 237 ML CAN PO SCH ×2 (09:00→21:56)
[2018-09-25 09:08] LABS: Albumin 2.3 g/dL (3.4-5.0); Bilirubin Total 1.3 mg/dL (0.2-1.0); Potassium 3.8 mmol/L (3.5-5.1); Protein, Total 5.3 g/dL (6.4-8.2)
[2018-09-25 09:54] LABS: Urine Appearance CLEAR; Urine Bilirubin NEGATIVE (NEG); Urine Blood NEGATIVE (NEG); Urine Color YELLOW; Urine Glucose NEGATIVE (NEG); Urine Protein NEGATIVE (NEG); Urine Urobilinogen 0.2 mg/dL (0.2-1.0)
[2018-09-25 10:04] LABS: Urine Bacteria 20-50 /HPF (<20); Urine Culture Reflex Order REFLEXED; Urine RBC <5 /HPF (NONE SEEN)
[2018-09-25] MEDS: CEFTRIAXONE/SWI 1gm 1 GM/10 ML SYR IV SCH ×2 (10:20→21:56)
[2018-09-25] MEDS: URSODIOL 500 MG TAB PO SCH ×2 (10:20→21:56)
[2018-09-25] MEDS: VITAMIN B COMPLEX 1 CAP PO SCH (10:21)
[2018-09-25] MEDS: FOLBIC 1 TAB PO SCH (10:21)
[2018-09-25] MEDS: SPIRONOLACTONE 25 MG TABLET PO SCH (10:21)
[2018-09-25] MEDS: CETIRIZINE HCL 5 MG TABLET PO SCH (10:22)
[2018-09-25] MEDS: LACTULOSE 20 GM/30 ML UCUP PO SCH ×4 (10:22→21:55)
[2018-09-25] MEDS: ASPIRIN EC 81 MG TAB PO SCH (10:22)
[2018-09-25] MEDS: PROPRANOLOL HCL 10 MG TAB PO SCH ×2 (10:23→21:56)
[2018-09-25] MEDS: HYDRALAZINE HCL 10 MG TABLET PO SCH ×2 (10:23→21:56)
[2018-09-25] MEDS: MULTIVITAMIN TAB PO SCH ×2 (10:23→21:56)
--- NOTE | 2018-09-25 12:30 | PN ---
Date of Progress Note: 09/25/2018 Subjective: The patient was seen this morning for followup. Her daughter was present with her at [facility]. The patient was lying in bed, did not communicate with me, had her eyes closed throughout the time I was visiting her this morning and daughter reported that as of yesterday she noted that the p atient's mental status was what she describes as "off." She is eating fairly well. Objective: Vital signs: Reviewed. HEENT: Examination unremarkable. Lungs: Clear to auscultation. Heart: Sounds normal. Abdomen: Soft. Bowel sounds normal. No guarding, rigidity, tenderness, or distention. Extremities: No leg edema. Impression: 1.Altered mental status. 2.Hepatic encephalopathy. 3.Biliary cirrhosis. 4.Urinary tract infection. Plan: We will go ahead and check on serum ammonia level along with urinalysis, chest x-ray, looking for any other signs of infection. Follow up on her CBC, chemistry and depending on all those results , we will decide any further intervention needed or not. Details were discussed with the family. We are waiting on insurance [employer]'s approval for intermediate facility placement. PAGE/MODL Voice ID: [id number] Report ID: [id number]
[2018-09-25] MEDS ORDERED: POTASSIUM 25 MEQ EFFERV TAB PO ONE (14:00)
[2018-09-25] MEDS: NA CHLORIDE 0.9% 1,000 ML IV SCH (16:52)
[2018-09-25] MEDS ORDERED: NA CHLORIDE 0.9% 1,000 ML ONE (17:03)
[2018-09-26] MEDS: NA CHLORIDE 0.9% 1,000 ML IV SCH ×2 (00:46→17:19)
[2018-09-26] MEDS: LACTULOSE 20 GM/30 ML UCUP PO SCH ×6 (00:46→21:52)
[2018-09-26] MEDS: FUROSEMIDE 40 MG TABLET PO SCH ×2 (05:36→17:17)
[2018-09-26] MEDS: PANTOPRAZOLE 40MG TABLET PO SCH (05:36)
[2018-09-26] MEDS: ENSURE ENLIVE 237 ML CAN PO SCH ×2 (09:00→21:00)
[2018-09-26] MEDS: PROPRANOLOL HCL 10 MG TAB PO SCH ×2 (09:16→21:54)
[2018-09-26] MEDS: CETIRIZINE HCL 5 MG TABLET PO SCH (09:16)
[2018-09-26] MEDS: FOLBIC 1 TAB PO SCH (09:17)
[2018-09-26] MEDS: SPIRONOLACTONE 25 MG TABLET PO SCH (09:17)
[2018-09-26] MEDS: ASPIRIN EC 81 MG TAB PO SCH (09:18)
[2018-09-26] MEDS: URSODIOL 500 MG TAB PO SCH ×2 (09:18→21:54)
[2018-09-26] MEDS: MULTIVITAMIN TAB PO SCH ×2 (09:18→21:53)
[2018-09-26] MEDS: VITAMIN B COMPLEX 1 CAP PO SCH (09:18)
[2018-09-26] MEDS: CEFTRIAXONE/SWI 1gm 1 GM/10 ML SYR IV SCH ×2 (09:18→21:53)
[2018-09-26] MEDS: HYDRALAZINE HCL 10 MG TABLET PO SCH ×2 (09:18→21:53)
--- NOTE | 2018-09-26 19:09 | PN ---
Date of Progress Note: 09/26/2018 Subjective: The patient was seen this morning for followup. No new complaints or problems reported by her. She was sitting in the chair. Her daughter was present at bedside. Her mental status has i mproved significantly and she is awake, alert, communicating well, significantly better than yesterda y. Objective: Vital Signs: Reviewed. HEENT: Unremarkable. Lungs: Clear to auscultation. Heart: Sounds normal. Abdomen: Soft. Bowel sounds normal. No guarding, rigidity, tenderness, or distention. Extremities: No leg edema. Skin: She has some indurated skin with pink discoloration, slightly warm to touch. This is where IV had infiltrated in the right proximal medial forearm and this area was examined and the patient and daughter were reassured. Impression: 1.Hepatic encephalopathy. 2.Biliary cirrhosis. 3.Urinary tract infection. 4.Hypertension. 5.Generalized weakness. 6.Debility. Plan: We will continue physical therapy to help ambulate the patient. We will continue lactulose, w hich was increased yesterday to every 4 hours after I reviewed her ammonia level and we will continue that lactulose every 4 hours. There was no evidence of any pneumonia or urinary tract infection on chest x-ray or urinalysis respectively. Social Service is trying to get authorization from insurance company for nursing home facility and we are waiting on insurance company's response. PAGE/MODL Voice ID: [id number] Report ID: [id number]
[2018-09-26 20:15] VITALS: O2SAT 95
[2018-09-27] MEDS: LACTULOSE 20 GM/30 ML UCUP PO SCH ×6 (01:17→21:34)
[2018-09-27] MEDS: FUROSEMIDE 40 MG TABLET PO SCH ×2 (06:33→17:02)
[2018-09-27] MEDS: PANTOPRAZOLE 40MG TABLET PO SCH (06:34)
[2018-09-27 07:16] LABS: Magnesium 1.8 mg/dL (1.8-2.4); Potassium 3.7 mmol/L (3.5-5.1)
[2018-09-27] MEDS: URSODIOL 500 MG TAB PO SCH ×2 (09:00→21:35)
[2018-09-27] MEDS: ENSURE ENLIVE 237 ML CAN PO SCH ×2 (09:00→21:00)
[2018-09-27] MEDS ORDERED: POTASSIUM 25 MEQ EFFERV TAB PO ONE (09:00)
[2018-09-27] MEDS: HYDRALAZINE HCL 10 MG TABLET PO SCH ×2 (10:18→21:36)
[2018-09-27] MEDS: PROPRANOLOL HCL 10 MG TAB PO SCH ×2 (10:19→21:36)
[2018-09-27] MEDS: MULTIVITAMIN TAB PO SCH ×2 (10:19→21:37)
[2018-09-27] MEDS: ASPIRIN EC 81 MG TAB PO SCH (10:19)
[2018-09-27] MEDS: VITAMIN B COMPLEX 1 CAP PO SCH (10:19)
[2018-09-27] MEDS: SPIRONOLACTONE 25 MG TABLET PO SCH (10:20)
[2018-09-27] MEDS: CETIRIZINE HCL 5 MG TABLET PO SCH (10:20)
[2018-09-27] MEDS: FOLBIC 1 TAB PO SCH (10:21)
--- NOTE | 2018-09-27 13:54 | PN ---
Date of Progress Note: 09/27/2018 Subjective: Patient was seen this morning for followup. No new complaints or problems reported by t he patient. She was awake, alert, back to her normal self. Daughter was at bedside. Objective: Vital Signs: Reviewed. HEENT: Examination unremarkable. Lungs: Clear to auscultation. Heart: Sounds normal. Abdomen: Soft. Bowel sounds normal. No guarding, rigidity, tenderness, or distention. Extremities Exam: No leg edema. Laboratory Data: Sodium 144, potassium 3.7, chloride 109, bicarb 32, BUN 15, creatinine 1.22, glucos e 108. Ammonia level 27. Impression: 1.Hepatic encephalopathy. 2.Urinary tract infection. 3.Biliary cirrhosis. Plan: We will go ahead and continue current medications. Continue current lactulose. Insurance Checker apy to work with the patient. We will go ahead and discontinue antibiotic, which is ceftriaxone as p atient has received adequate number of days of this antibiotic and cultures are negative so far. We will discontinue her IV fluid as she is awake, alert, and eating and drinking like her normal baselin e. PAGE/MODL Voice ID: [id number] Report ID: [id number]
[2018-09-28] MEDS: LACTULOSE 20 GM/30 ML UCUP PO SCH ×6 (00:53→20:56)
[2018-09-28] MEDS: PANTOPRAZOLE 40MG TABLET PO SCH (05:01)
[2018-09-28] MEDS: FUROSEMIDE 40 MG TABLET PO SCH ×2 (05:01→17:19)
[2018-09-28 06:01] LABS: Potassium 3.5 mmol/L (3.5-5.1)
[2018-09-28] MEDS ORDERED: POTASSIUM CL SA 10 MEQ TAB PO ONE (09:00)
[2018-09-28] MEDS: CETIRIZINE HCL 5 MG TABLET PO SCH (09:51)
[2018-09-28] MEDS: PROPRANOLOL HCL 10 MG TAB PO SCH ×2 (09:52→20:58)
[2018-09-28] MEDS: ASPIRIN EC 81 MG TAB PO SCH (09:52)
[2018-09-28] MEDS: MULTIVITAMIN TAB PO SCH ×2 (09:52→20:58)
[2018-09-28] MEDS: SPIRONOLACTONE 25 MG TABLET PO SCH (09:54)
[2018-09-28] MEDS: HYDRALAZINE HCL 10 MG TABLET PO SCH ×2 (09:54→20:58)
[2018-09-28] MEDS: VITAMIN B COMPLEX 1 CAP PO SCH (09:56)
[2018-09-28] MEDS: URSODIOL 500 MG TAB PO SCH ×2 (09:56→20:57)
[2018-09-28] MEDS: FOLBIC 1 TAB PO SCH (09:56)
[2018-09-28] MEDS: ENSURE ENLIVE 237 ML CAN PO SCH ×2 (09:57→21:00)
[2018-09-29] MEDS: LACTULOSE 20 GM/30 ML UCUP PO SCH ×6 (01:15→21:45)
--- NOTE | 2018-09-29 03:01 | PN ---
Date of Progress Note: 09/28/2018 Subjective: The patient was seen this morning for followup, sleeping, easily arousable, not in distr ess. Daughter was present at bedside. No new complaints or problems reported by her. Objective: Vital Signs: Reviewed. HEENT: Unremarkable. Lungs: Clear to auscultation. Heart: Sounds normal. Abdomen: Soft. Bowel sounds normal. No guarding, rigidity, tenderness, or distention. Extremities: No leg edema. Laboratory Data: Sodium 140, potassium 3.5, chloride 106, bicarb 30, BUN 15, creatinine 1.24, glucos e 130, magnesium 2. Impression: 1.Hepatic encephalopathy. 2.Generalized weakness. 3.Debility. 4.Biliary cirrhosis. Plan: Continue current medications. We will discontinue IV antibiotics, which she was getting for u rinary tract infection. Continue current lactulose and other current medical management. Physical t herapy to continue to work with the patient and social media marketer is trying to get approval from [employer] for retirement facility placement, but so far we have not been able to get any such ap proval from [employer]. PAGE/MODL Voice ID: [id number] Report ID: [id number]
[2018-09-29 05:37] LABS: Potassium 3.7 mmol/L (3.5-5.1)
[2018-09-29] MEDS: PANTOPRAZOLE 40MG TABLET PO SCH (06:32)
[2018-09-29] MEDS: FUROSEMIDE 40 MG TABLET PO SCH ×2 (06:32→17:22)
[2018-09-29] MEDS ORDERED: POTASSIUM 25 MEQ EFFERV TAB PO ONE (08:29)
[2018-09-29] MEDS: CETIRIZINE HCL 5 MG TABLET PO SCH (09:00)
[2018-09-29] MEDS: SPIRONOLACTONE 25 MG TABLET PO SCH (09:00)
[2018-09-29] MEDS: ENSURE ENLIVE 237 ML CAN PO SCH ×2 (09:00→21:45)
[2018-09-29] MEDS: ASPIRIN EC 81 MG TAB PO SCH (09:00)
[2018-09-29] MEDS: URSODIOL 500 MG TAB PO SCH ×2 (09:00→21:45)
[2018-09-29] MEDS: FOLBIC 1 TAB PO SCH (09:02)
[2018-09-29] MEDS: PROPRANOLOL HCL 10 MG TAB PO SCH ×2 (09:02→21:45)
[2018-09-29] MEDS: HYDRALAZINE HCL 10 MG TABLET PO SCH ×2 (09:02→21:45)
[2018-09-29] MEDS: VITAMIN B COMPLEX 1 CAP PO SCH (09:02)
[2018-09-29] MEDS: MULTIVITAMIN TAB PO SCH ×2 (09:02→21:45)
--- NOTE | 2018-09-29 11:58 | PN ---
Date of Progress Note: 09/29/2018 Subjective: The patient was seen this morning for followup. No new complaints or problems reported by her family. The patient was sleeping. Daughter was present at bedside. The patient participates with physical therapy. Ambulates with physical therapy. Objective: Vital Signs: Reviewed. HEENT: Examination unremarkable. Lungs: Clear to auscultation. Heart: Sounds normal. Abdomen: Soft. Bowel sounds normal. No guarding, rigidity, tenderness, or distention. Extremities: No leg edema. Laboratory Data: Sodium 140, potassium 3.7, chloride 105, bicarb 30, BUN 17, creatinine 1.25, glucos e 138. Impression: 1.Hepatic encephalopathy. 2.Biliary cirrhosis. 3.Debility. 4.Generalized weakness. Plan: Unfortunately we are still waiting for insurance [employer]'s approval and social work program coordinator is sherwin neves to get this approval for last almost 7-10 days. I did talk to patient's daughter today and informe d her that if we get denial from insurance company, then she will need to start finding out if the wa y her current condition is and the kind of help she needs whether [facility] can provide that consueloalexander corbin with help of home health care services or not, so she will start looking into it. We are possi awa looking into possible discharge tomorrow depending on what insurance company decides for her shelter facility request. PAGE/MODL Voice ID: [id number] Report ID: [id number]
--- NOTE | 2018-09-29 15:42 | RAD REPORT ---
EXAM DESCRIPTION: US - UPPER EXTREMITY VENOUS UNILATE - 09/29/2018 2:55 pm CLINICAL HISTORY: Right arm pain and swelling COMPARISON: None. TECHNIQUE: Real-time sonographic evaluation of the right upper extremity deep venous systems was per formed. FINDINGS: Normal compressibility, flow augmentation, phasic flow and spontaneous flow are identified in the right upper extremity deep venous system. No intraluminal filling defects seen. Internal jugu lar and subclavian veins are normal as well. In the superficial right basilic vein there is thrombus present in the mid and distal portion. Cephal ic vein was not identifiable. IMPRESSION: Superficial venous thrombosis involving mid and distal portion of the right basilic vein . No thrombus within the deep venous system.
[2018-09-30] MEDS: LACTULOSE 20 GM/30 ML UCUP PO SCH ×4 (01:37→13:32)
[2018-09-30] MEDS: PANTOPRAZOLE 40MG TABLET PO SCH (05:36)
[2018-09-30] MEDS: FUROSEMIDE 40 MG TABLET PO SCH (05:36)
[2018-09-30 06:13] LABS: Absolute Lymphocytes (CBC) 1.4 K/uL (0.7-4.9); Basophils % 1.2 % (0-1.3); Eosinophils % 6.3 % (0-4.4); Hematocrit 34.7 % (36.0-45.0); Lymphocytes % 24.9 % (15.3-44.8); MPV 9.6 fL (7.6-11.3); Monocytes % 10.7 % (3.3-12.3); RBC Red Blood Cell Count 3.76 M/uL (3.86-4.86)
[2018-09-30 06:26] LABS: Albumin 2.4 g/dL (3.4-5.0); Bilirubin Total 1.4 mg/dL (0.2-1.0); Potassium 3.9 mmol/L (3.5-5.1); Protein, Total 5.5 g/dL (6.4-8.2)
[2018-09-30] MEDS ORDERED: POTASSIUM CL SA 10 MEQ TAB PO ONE (09:00)
[2018-09-30] MEDS: ENSURE ENLIVE 237 ML CAN PO SCH (09:00)
[2018-09-30] MEDS: FOLBIC 1 TAB PO SCH (10:00)
[2018-09-30] MEDS: PROPRANOLOL HCL 10 MG TAB PO SCH (10:00)
[2018-09-30] MEDS: URSODIOL 500 MG TAB PO SCH (10:00)
[2018-09-30] MEDS: VITAMIN B COMPLEX 1 CAP PO SCH (10:02)
[2018-09-30] MEDS: HYDRALAZINE HCL 10 MG TABLET PO SCH (10:02)
[2018-09-30] MEDS: ASPIRIN EC 81 MG TAB PO SCH (10:02)
[2018-09-30] MEDS: CETIRIZINE HCL 5 MG TABLET PO SCH (10:02)
[2018-09-30] MEDS: MULTIVITAMIN TAB PO SCH (10:02)
[2018-09-30] MEDS: SPIRONOLACTONE 25 MG TABLET PO SCH (10:02)
[2018-09-30 14:40] VITALS: BP 125/67; TEMP 97.5
--- NOTE | 2018-10-01 04:12 | DS ---
Date of Discharge: 09/30/2018 Disposition: Discharged to go to [facility]. Physical Examination: HEENT: Unremarkable. Lungs: Clear to auscultation. Heart: Sounds normal. Abdomen: Soft. Bowel sounds normal. No guarding, rigidity, tenderness, distention. Extremities: No leg edema. Hospital Course: This is an 88-year-old female patient admitted to the hospital with altered mental status. Please see dictated H and P for more information. The patient was admitted to the hospital with hepatic encephalopathy. Her ammonia level was elevated. She was started on lactulose. Overall , her condition improved significantly as ammonia level came down and altered mental status improved. The patient also had some evidence of urinary tract infection and empiric antibiotic ceftriaxone wa s started. Urine culture never grew anything. As her condition improved after giving appropriate du ration of antibiotic therapy, we were able to discontinue that. Social Service was consulted, and we requested the patient to be sent to custodial facility. So, Social Service requested [facility] [employer] for authorization of custodial facility placement, and for almost last 10 days or so, we have been waiting on a day-to-day basis for insurance company's approval, and today finally, they notified hospital that they refused any custodial facility placement for this pa tient. Meanwhile, the patient continued to participate with physical therapy. She started ambulatin g well with therapy and the patient's daughter was with her. Per my request, she did communicate [facility] yesterday to see if they will be able to take her with home health care and home physi manpreet therapy, and today, the patient was discharged to go to such facility with home health care mariola salazar. Her ammonia level came down. Initially, she was started on lactulose 30 g every 4 hours. Ammo cuco level came down to normal in range of 24 or so and then we increased the lactulose dose to every 4 hours again and that actually has resulted in improvement in her ammonia level and mental status is back to normal. Final Diagnoses: 1.Hepatic encephalopathy. 2.Urinary tract infection. 3.Toxic encephalopathy. 4.Biliary cirrhosis. 5.Volume depletion. 6.Type 2 diabetes mellitus. 7.Asthma, mild, intermittent. 8.Hypertension. 9.Gastroesophageal reflux disease. Laboratory Data: Last white count from today 5.7, hemoglobin 12, platelets 114. Last chemistry from today; sodium 139, potassium 3.9, chloride 104, bicarb 30, BUN 17, creatinine 1.36, glucose 113. Am monia level 46 today. The patient to follow up at my office in 1 month. Continue all prior home med ications except change lactulose to 30 g every 4 hours. PAGE/MODL Voice ID: [id number] Report ID: [id number]
== END 2018-09-30 15:05 | disposition home or self-care (01) | DRG 441 ==
LOC: ER 15:09 → ERHOLD 18:02 → 4TH 20:03
PROVIDERS: ADMIT Internal Medicine; ATTEND Internal Medicine
DX: K72.90 Hepatic failure, unspecified without coma (principal); G92 Toxic encephalopathy; N39.0 Urinary tract infection, site not specified; K74.5 Biliary cirrhosis, unspecified; E86.9 Volume depletion, unspecified; E11.9 Type 2 diabetes mellitus without complications; J45.20 Mild intermittent asthma, uncomplicated; I10 Essential (primary) hypertension; K21.9 Gastro-esophageal reflux disease without esophagitis; E87.6 Hypokalemia; Z86.718 Personal history of other venous thrombosis and embolism; Z88.5 Allergy status to narcotic agent; Z88.0 Allergy status to penicillin; D64.9 Anemia, unspecified; D69.6 Thrombocytopenia, unspecified; R53.1 Weakness
CPT/HCPCS: 36415; 51702; 70450; 71045; 80048; 80053; 80076; 81001; 81003; 81015; 82140; 82550; 82553; 83605; 83690; 83735; 84132; 84145; 84484; 85025; 85610; 85730; 87040; 87086; 87088; 93005; 93971; 96360; 96361; 96365; 96366; 96368; 96375; 97110; 97116; 97163; 97165; 97530; 99284; 99285; J0696; J2405; J2765; J7030

== ENCOUNTER 2018-10-03 13:31 | Emergency (ER) | payer OTHER ==
[2018-10-03 16:02] LABS: RBC Red Blood Cell Count 3.73 M/uL (3.86-4.86)
[2018-10-03 16:03] LABS: Absolute Lymphocytes (CBC) 1.4 K/uL (0.7-4.9); Basophils % 1.3 % (0-1.3); Eosinophils % 6.4 % (0-4.4); Lymphocytes % 27.9 % (15.3-44.8); MPV 9.6 fL (7.6-11.3); Monocytes % 10.5 % (3.3-12.3)
[2018-10-03 16:24] LABS: Albumin 2.5 g/dL (3.4-5.0); Bilirubin Direct 1.1 mg/dL (0-0.2); Bilirubin Total 1.4 mg/dL (0.2-1.0); Potassium 3.6 mmol/L (3.5-5.1); Protein, Total 5.6 g/dL (6.4-8.2)
--- NOTE | 2018-10-03 16:48 | EDPHYS ---
Physician Documentation [facility] Name: Adwoa Espinosa Age: 88 yrs Sex: Female : 1930 Arrival Date: 10/03/2018 Time: 13:34 Bed 26 Private MD: Leslie Zee C ED Physician Debbie Miles HPI: 10/03 15:37 This 88 yrs old Female presents to ER via Wheelchair with complaints of ma2 Urinary Problem. 15:37 This 88 yrs old Female presents to ER via Wheelchair with complaints of ma2 Urinary Problem. 15:37 The pain does not radiate. Onset: The symptoms/episode began/occurred gradually, 1 ma2 week(s) ago. Associated signs and symptoms: Pertinent positives: hematuria, Pertinent negatives: dizziness, headache, nausea. Severity of pain: At its worst the pain was moderate in the emergency department the pain is unchanged. The patient has not experienced similar symptoms in the past. Historical: - Allergies: 13:40 ACETAMINOPHEN; la1 13:40 Codeine; la1 13:40 Demerol; la1 13:40 Diltiazem; la1 13:40 Morphine; la1 13:40 Opioids-Meperidine Related; la1 13:40 PENICILLINS; la1 - PMHx: 13:40 Arthritis; Atrial Fib; Cirrhosis; Hypertension; la1 - Immunization history:: Adult Immunizations up to date. - Social history:: Smoking status: Patient/guardian denies using tobacco, Patient/guardian denies using alcohol, street drugs, The patient lives with family. - Ebola Screening: : No symptoms or risks identified at this time. - Family history:: not pertinent. ROS: 15:37 Constitutional: Negative for fever, chills, and weight loss. ma2 15:37 Respiratory: 15:37 All other systems are negative. Exam: 15:37 Constitutional: This is a well developed, well nourished patient who is awake, alert, ma2 and in no acute distress. Head/Face: Normocephalic, atraumatic. Neck: Trachea midline, no thyromegaly or masses palpated, and no cervical lymphadenopathy. Supple, full range of motion without nuchal rigidity, or vertebral point tenderness. No Meningismus. Chest/axilla: Normal chest wall appearance and motion. Nontender with no deformity. No lesions are appreciated. Cardiovascular: Regular rate and rhythm with a normal S1 and S2. No gallops, murmurs, or rubs. Normal PMI, no JVD. No pulse deficits. Respiratory: Lungs have equal breath sounds bilaterally, clear to auscultation and percussion. No rales, rhonchi or wheezes noted. No increased work of breathing, no retractions or nasal flaring. Abdomen/GI: Soft, non-tender, with normal bowel sounds. No distension or tympany. No guarding or rebound. No evidence of tenderness throughout. MS/ Extremity: Pulses equal, no cyanosis. Neurovascular intact. Full, normal range of motion. Neuro: Awake and alert, GCS 15, oriented to person, place, time, and situation. Cranial nerves II-XII grossly intact. Motor strength 5/5 in all extremities. Sensory grossly intact. Cerebellar exam normal. Normal gait. Vital Signs: 13:44 BP 139 / 65; Pulse 68; Resp 16; Temp 98.1; Pulse Ox 98% on R/A; Weight 53.98 kg; la1 15:05 BP 147 / 65; Pulse 65; Resp 18; Pulse Ox 100% on R/A; aj 16:11 BP 144 / 63; Pulse 67; Resp 15; Pulse Ox 98% on R/A; aj 16:35 BP 133 / 62; Pulse 66; Resp 19; Pulse Ox 98% ; aj 17:03 BP 154 / 65; Pulse 65; Resp 18; Pulse Ox 98% on R/A; aj MDM: 14:03 Patient medically screened. in2 15:37 Differential diagnosis: UTI, anemia vs hepatic encephalopathy. Data reviewed: vital in2 signs, nurses notes. Counseling: I had a detailed discussion with the patient and/or guardian regarding: the historical points, exam findings, and any diagnostic results supporting the discharge/admit diagnosis, the presence of at least one elevated blood pressure reading (>120/80) during this emergency department visit. 16:46 ED course: discussed with dr. zee . in2 10/03 14:02 Order name: Urine Dipstick--Ancillary (enter results) 3 10/03 14:39 Order name: Basic Metabolic Panel; Complete Time: 16:43 [facility] 10/03 14:39 Order name: CBC with Diff; Complete Time: 16:43 ma10/03 14:39 Order name: Creatinine for Radiology; Complete Time: 16:43 in10/03 14:39 Order name: Hepatic Function; Complete Time: 16:43 in10/03 14:39 Order name: Lipase; Complete Time: 16:43 10/03 14:39 Order name: IV Saline Lock; Complete Time: 16:00 [facility] 10/03 14:39 Order name: Labs collected and sent; Complete Time: 16:00 [facility] 10/03 14:39 Order name: AMMONIA; Complete Time: 16:43 in10/03 14:39 Order name: Urine Culture ma2 Administered Medications: 16:58 Drug: Cipro 500 mg Route: PO; aj 17:05 Follow up: Response: Medication administered at discharge. aj 16:58 Drug: Lactulose 30 grams Volume: 45 ml; Route: PO; aj 17:05 Follow up: Response: No adverse reaction; Medication administered at discharge. aj Disposition: 10/03/18 16:47 Discharged to Home. Impression: Cystitis, unspecified with hematuria. - Condition is Stable. - Discharge Instructions: Urinary Tract Infection, Adult. - Prescriptions for Cipro 500 mg Oral Tablet - take 1 tablet by ORAL route every 12 hours for 7 days; 14 tablet. - Medication Reconciliation Form, Thank You Letter, Antibiotic Education, Prescription Opioid Use form. - Follow up: Private Physician; When: Tomorrow; Reason: Continuance of care. Signatures: Dispatcher [employer] Izzy Mccormick RN RN aj Attema, Lee, RN RN la1 Alzahri, Mohammad, MD MD ma2 Corrections: (The following items were deleted from the chart) 17:05 16:47 10/03/2018 16:47 Discharged to Home. Impression: Cystitis, unspecified with aj hematuria. Condition is Stable. Forms are Medication Reconciliation Form, Thank You Letter, Antibiotic Education, Prescription Opioid Use. Follow up: Private Physician; When: Tomorrow; Reason: Continuance of care. ma2
--- NOTE | 2018-10-03 16:48 | ER ---
Nurse's Notes [facility] Name: Adwoa Espinosa Age: 88 yrs Sex: Female : 1930 Arrival Date: 10/03/2018 Time: 13:34 Bed 26 Private MD: Leslie Noonan C Diagnosis: Cystitis, unspecified with hematuria Presentation: 10/03 13:40 Presenting complaint: Patient states: Bright red blood in urine, recently hospitalized, la1 had hepatic encephalopathy in the hospital as well. Pt taking lactulose as prescribed and concern for dehydration. Pt is a pt of Dr. Noonan. Transition of care: patient was not received from another setting of care. Onset of symptoms was October 03, 2018. Risk Assessment: Do you want to hurt yourself or someone else? Patient reports no desire to harm self or others. Initial Sepsis Screen: Does the patient meet any 2 criteria? No. Patient's initial sepsis screen is negative. Does the patient have a suspected source of infection? No. Patient's initial sepsis screen is negative. Care prior to arrival: None. 13:40 Method Of Arrival: Wheelchair la1 13:40 Acuity: XAVIER 3 la1 Historical: - Allergies: 13:40 ACETAMINOPHEN; la1 13:40 Codeine; la1 13:40 Demerol; la1 13:40 Diltiazem; la1 13:40 Morphine; la1 13:40 Opioids-Meperidine Related; la1 13:40 PENICILLINS; la1 - PMHx: 13:40 Arthritis; Atrial Fib; Cirrhosis; Hypertension; la1 - Immunization history:: Adult Immunizations up to date. - Social history:: Smoking status: Patient/guardian denies using tobacco, Patient/guardian denies using alcohol, street drugs, The patient lives with family. - Ebola Screening: : No symptoms or risks identified at this time. - Family history:: not pertinent. Screenin:04 Abuse screen: Denies threats or abuse. Denies injuries from another. Nutritional aj screening: No deficits noted. Tuberculosis screening: No symptoms or risk factors identified. Fall Risk None identified. Assessment: 14:04 General: Appears in no apparent distress. comfortable, Behavior is calm, cooperative, aj appropriate for age. Pain: Denies pain. Neuro: Level of Consciousness is awake, alert, obeys commands, Oriented to person, place, time, situation, Appropriate for age. Respiratory: Airway is patent Respiratory effort is even, unlabored, Respiratory pattern is regular, symmetrical. : Reports blood in urine. Derm: Skin is intact, Skin is pink, warm \T\ dry. normal, Reports itching. 15:24 Reassessment: Physician is at bedside. Prior to physician arrival at bedside patient aj was on bedside commode. Voided 200 ml clear yellow urine and small BM. 17:03 Reassessment: Patient appears in no apparent distress at this time. No changes from aj previously documented assessment. Patient and/or family updated on plan of care and expected duration. Pain level reassessed. Patient is alert, oriented x 3, equal unlabored respirations, skin warm/dry/pink. Patient denies pain at this time. Vital Signs: 13:44 BP 139 / 65; Pulse 68; Resp 16; Temp 98.1; Pulse Ox 98% on R/A; Weight 53.98 kg; la1 15:05 BP 147 / 65; Pulse 65; Resp 18; Pulse Ox 100% on R/A; aj 16:11 BP 144 / 63; Pulse 67; Resp 15; Pulse Ox 98% on R/A; aj 16:35 BP 133 / 62; Pulse 66; Resp 19; Pulse Ox 98% ; aj 17:03 BP 154 / 65; Pulse 65; Resp 18; Pulse Ox 98% on R/A; aj ED Course: 13:34 Patient arrived in ED. rg4 13:34 Leslie Noonan MD is Private Physician. rg4 13:40 Arm band placed on right wrist. la1 13:41 Triage completed. la1 14:03 Debbie Miles MD is Attending Physician. ma2 14:03 Izzy So, RN is Primary Nurse. aj 14:04 Patient has correct armband on for positive identification. aj 14:04 Urine collected: clean catch specimen, clear. aj 15:59 Missed attempt(s): 22 gauge in left antecubital area. lt1 15:59 Initial lab(s) drawn, by wi, sent to lab. Inserted saline lock: 22 gauge in right lt1 wrist, using aseptic technique. 16:00 Urine Culture Sent. lt1 16:00 AMMONIA Sent. lt1 16:31 Urine Culture Sent. aj 17:03 No provider procedures requiring assistance completed. IV discontinued, intact, aj bleeding controlled, No redness/swelling at site. Pressure dressing applied. Administered Medications: 16:58 Drug: Cipro 500 mg Route: PO; joselyn 17:05 Follow up: Response: Medication administered at discharge. joselyn 16:58 Drug: Lactulose 30 grams Volume: 45 ml; Route: PO; joselyn 17:05 Follow up: Response: No adverse reaction; Medication administered at discharge. joselyn Outcome: 16:47 Discharge ordered by . timothy 17:03 Discharged to home via wheelchair. joselyn 17:03 Condition: good 17:03 Discharge instructions given to patient, family, Instructed on discharge instructions, follow up and referral plans. medication usage, Demonstrated understanding of instructions, follow-up care, medications, Prescriptions given X 1. 17:05 Patient left the ED. joselyn Addendum: 10/07/2018 07:36 Addendum: Culture Results: Positive urine culture. No further action required. Bacteria m s sensitive to prescribed antibiotic. Signatures: Izzy So, Carol Peralta RN, ms, Lee, RN RN la1 Garcia, Rubi rg4 Debbie Miles MD MD ma2 Lorrie Bourne 1
[2018-10-03] MEDS ORDERED: CIPROFLOXACIN HCL 500 MG TAB ONE (17:03)
[2018-10-03] MEDS ORDERED: LACTULOSE 20 GM/30 ML UCUP ONE (17:03)
[2018-10-03 17:48] VITALS: TEMP 98.1
[2018-10-03 17:50] VITALS: O2SAT 98
[2018-10-03 17:53] VITALS: BP 154/65
[2018-10-03 18:06] LABS: Urine Blood 3+ (NEG); Urine Glucose NEGATIVE (NEG); Urine Protein NEGATIVE (NEG)
== END 2018-10-03 17:05 | disposition home or self-care (01) ==
LOC: ER 13:31
DX: N30.91 Cystitis, unspecified with hematuria (principal); I48.91 Unspecified atrial fibrillation; I10 Essential (primary) hypertension; Z88.6 Allergy status to analgesic agent; Z88.5 Allergy status to narcotic agent; Z88.0 Allergy status to penicillin
CPT/HCPCS: 36415; 80048; 80076; 81003; 82140; 83690; 85025; 87077; 87086; 87088; 87186; 99284